=== PATIENT | female | born 1985 | race American Indian/Alaskan Native ===

== ENCOUNTER 2016-08-31 20:45 | Inpatient (IN) | payer MEDICAID ==
[2016-08-31] MEDS ORDERED: CERVIDIL VG ONE (21:55)
--- NOTE | 2016-08-31 22:01 | History and Physical Report ---
History of Present Illness Date of examination: 08/31/16 Date of admission: 08/31/16 20:45 Chief complaint: Induction of labor History of present illness: 31 yo at 41 weeks by one US 08/23/16 stated that she was on induction book but was not scheduled yet while in triage she was scheduled for today. very limited care ( one visit) Past History Past Medical History: no pertinent history, hypertension, diabetes (gestational diabetes in one previous pregnancies) Past Surgical History: no surgical history Family/Genetic History: diabetes Social history: single. denies: smoking - Obstetrical History Expected Date of Delivery: 08/23/16 Actual Gestation: 41 Week(s) 1 Day(s) : 3 Para: 2 Hx # Term Pregnancies: 2 Number of Pregnancies: 0 Spontaneous Abortions: 0 Induced : 0 Number of Living Children: 2 Medications and Allergies Allergies Allergy/AdvReac Type Severity Reaction Status Date / Time No Known Allergies Allergy Verified 08/31/16 21:43 Home Medications Medication Instructions Recorded Confirmed Last Taken Type No Known Home Medications [No 08/31/16 08/31/16 Unknown History Reported Home Medications] Active Meds: Active Medications Dinoprostone (Cervidil) 10 mg VG ONCE ONE Stop: 08/31/16 21:56 Influenza Virus Vaccine Quadrival (Fluarix Quad 2983-3500(36 Mos+)) 60 mcg IM .ONCE ONE Stop: 09/01/16 12:01 Review of Systems All systems: negative Constitutional: no fever, no chills, no sweats, no fatigue Eyes: deferred Ears, nose, mouth and throat: deferred Cardiovascular: no chest pain, no orthopnea, no palpitations, no edema, no high blood pressure Respiratory: no shortness of breath, no wheezing, no pain Breasts: normal Gastrointestinal: no nausea, no vomiting, no diarrhea Genitourinary: normal appearance, no genital sores Rectal Exam: deferred Integumentary: no rash Neurological: no seizures, no headaches, no migraines Psychiatric: no depression - Vital Signs Vital signs: Vital Signs Temp Pulse Resp BP Pulse Ox 98.4 F 94 H 20 132/69 99 08/31/16 21:16 08/31/16 21:16 08/31/16 21:16 08/31/16 21:16 08/31/16 21:16 Temp Pulse Resp BP Pulse Ox 98.4 F 86 20 132/69 98 08/31/16 21:16 08/31/16 21:41 08/31/16 21:16 08/31/16 21:16 08/31/16 21:41 - Physical Exam Breasts: Positive: normal Cardiovascular: Regular rate Lungs: Positive: Clear to auscultation Abdomen: Positive: normal appearance, soft, normal bowel sounds. Negative: distention, tenderness Genitourinary (Female): Positive: normal external genitalia, normal perenium Vagina: Positive: normal moisture Uterus: Positive: normal contour Anus/Rectum: Positive: normal perianal skin Extremities: Positive: normal Deep Tendon Reflex Grade: Normal +2 - Obstetrical FHR: auscultation normal, category 1 Cervical Dilatation: 2 Cervical Effacement Percentage: 50 station: -3 Uterine Contraction Pattern: Absent Uterine Tone Measurement Phase: Resting Results All other labs normal. Assessment and Plan A/P HD#1 limited care post dates induction 08/23/16 1. GBS neg -no abx required 2. cervidil induction 3. vertex 4. limited care - understands limitation of the US at third trimester. Patient states that she has not had any care previously anywhere and no US pereviously. She understands error and risk of 37 weeks delivery with possible lungs not as mature ( hx of diabetes in one previous ) FS now 5. all labs sent as ther is no previous work up. She understands that there are labs not performed ie quad 6. All questions answered
[2016-08-31] MEDS ORDERED: ePHEDrine SULFATE IV PRN (22:21)
[2016-08-31] MEDS ORDERED: SUBLIMAZE IV PRN (22:21)
[2016-08-31] MEDS ORDERED: MINERAL OIL PO PRN (22:21)
[2016-08-31] MEDS ORDERED: BRETHINE SUB-Q PRN (22:21)
[2016-08-31] MEDS ORDERED: ZOFRAN IV PRN (22:21)
[2016-08-31] MEDS ORDERED: BRETHINE IVP PRN (22:21)
[2016-08-31 22:35] LABS: Basophils % (Auto) 0.3 % (0.0-1.8); Eosinophils % (Auto) 0.4 % (0.0-4.3); Hematocrit 29.3 % (30.3-42.9); Hemoglobin 9.2 gm/dl (10.1-14.3); Mean Corpuscular HGB Conc 32 % (30-34); Platelet Count 325 K/mm3 (140-440); Red Blood Count 4.21 M/mm3 (3.65-5.03); Red Cell Distribution Width 17.7 % (13.2-15.2); White Blood Count 7.4 K/mm3 (4.5-11.0)
[2016-08-31 22:38] LABS: Mean Corpuscular Hemoglobin 22 pg (28-32); Mean Corpuscular Volume 70 fl (79-97)
[2016-08-31] MEDS ORDERED: PITOCin/NS 20 UNIT/1000ML DRIP 1,000 ML IV SCH (23:00)
[2016-08-31] MEDS ORDERED: PITOCin/NS 30 UNIT/500ML 500 ML IV SCH ×2 (23:00)
[2016-09-01] MEDS: LACTATED RINGERS 1,000 ML IV SCH ×2 (00:30→10:30)
[2016-09-01] MEDS ORDERED: AMBIEN PO PRN (00:40)
[2016-09-01 01:45] LABS: Urine Drugs of Abuse Note Disclamer
[2016-09-01 02:25] LABS: Bilirubin,Urine NEG (Negative); Blood,Urine NEG (Negative); Ketones,Urine 80 mg/dL (Negative); Leukocyte Esterase,Urine NEG (Negative); Mucus,Urine 3+ /HPF; Nitrite,Urine NEG (Negative); Protein,Urine <15 mg/dL mg/dL (Negative); Urobilinogen,Urine < 2.0 mg/dL (<2.0)
[2016-09-01] MEDS: STADOL IV PRN ×2 (03:38→06:40)
--- NOTE | 2016-09-01 09:35 | Progress Note ---
Assessment and Plan O: /-2/vtx/ AROM-clear Cervidil removed A: IUP at term Active Labor Pain P: Anesthesia/Anesthesia prn Subjective - Subjective Date of service: 09/01/16 Patient reports: new complaints (Pain), loss of fluid, movement normal, contractions, no vaginal bleeding Objective - Vital Signs Vital Signs: Vital Signs - 12hr 08/31/16 08/31/16 08/31/16 21:36 21:41 22:56 Temperature Pulse Rate 90 86 97 H Pulse Rate [ From Monitor] Respiratory Rate Blood Pressure 121/71 Blood Pressure [Right Arm] O2 Sat by Pulse 98 98 Oximetry 08/31/16 09/01/16 09/01/16 23:00 03:39 03:44 Temperature 97.9 F 98.1 F Pulse Rate 100 H 92 H Pulse Rate [ From Monitor] Respiratory 18 18 Rate Blood Pressure Blood Pressure [Right Arm] O2 Sat by Pulse 97 96 Oximetry 09/01/16 09/01/16 09/01/16 03:49 03:54 03:59 Temperature Pulse Rate 99 H 104 H 97 H Pulse Rate [ From Monitor] Respiratory Rate Blood Pressure Blood Pressure [Right Arm] O2 Sat by Pulse 97 97 97 Oximetry 09/01/16 09/01/16 09/01/16 04:04 04:09 04:14 Temperature Pulse Rate 105 H 109 H 98 H Pulse Rate [ From Monitor] Respiratory Rate Blood Pressure Blood Pressure [Right Arm] O2 Sat by Pulse 97 97 97 Oximetry 09/01/16 09/01/16 09/01/16 04:19 04:24 04:29 Temperature Pulse Rate 100 H 106 H 100 H Pulse Rate [ From Monitor] Respiratory Rate Blood Pressure Blood Pressure [Right Arm] O2 Sat by Pulse 98 97 97 Oximetry 09/01/16 09/01/16 09/01/16 04:36 04:41 04:46 Temperature Pulse Rate 114 H 97 H 93 H Pulse Rate [ From Monitor] Respiratory Rate Blood Pressure Blood Pressure [Right Arm] O2 Sat by Pulse 98 97 97 Oximetry 09/01/16 09/01/16 09/01/16 04:51 04:56 05:01 Temperature Pulse Rate 58 L 92 H 95 H Pulse Rate [ From Monitor] Respiratory Rate Blood Pressure Blood Pressure [Right Arm] O2 Sat by Pulse 87 99 98 Oximetry 0109/01/16 09/01/16 05:06 05:11 05:16 Temperature Pulse Rate 90 97 H 94 H Pulse Rate [ From Monitor] Respiratory Rate Blood Pressure Blood Pressure [Right Arm] O2 Sat by Pulse 99 99 99 Oximetry 09/01/16 09/01/16 09/01/16 05:21 05:26 05:31 Temperature Pulse Rate 101 H 94 H 97 H Pulse Rate [ From Monitor] Respiratory Rate Blood Pressure Blood Pressure [Right Arm] O2 Sat by Pulse 96 99 97 Oximetry 09/01/16 09/01/16 09/01/16 05:36 05:38 05:41 Temperature Pulse Rate 96 H 91 H 90 Pulse Rate [ From Monitor] Respiratory Rate Blood Pressure Blood Pressure [Right Arm] O2 Sat by Pulse 96 78 L 98 Oximetry 09/01/16 09/01/16 09/01/16 05:46 05:51 05:56 Temperature Pulse Rate 95 H 90 97 H Pulse Rate [ From Monitor] Respiratory Rate Blood Pressure Blood Pressure [Right Arm] O2 Sat by Pulse 99 98 99 Oximetry 09/01/16 09/01/16 09/01/16 06:01 06:06 06:10 Temperature Pulse Rate 95 H 97 H 105 H Pulse Rate [ From Monitor] Respiratory Rate Blood Pressure Blood Pressure [Right Arm] O2 Sat by Pulse 98 96 83 L Oximetry 09/01/16 09/01/16 09/01/16 06:11 06:23 06:25 Temperature Pulse Rate 99 H 103 H 96 H Pulse Rate [ From Monitor] Respiratory Rate Blood Pressure Blood Pressure [Right Arm] O2 Sat by Pulse 92 88 87 Oximetry 09/01/16 09/01/16 09/01/16 06:28 08:05 08:08 Temperature 97.4 F L Pulse Rate 99 H 109 H Pulse Rate [ 109 H From Monitor] Respiratory 18 Rate Blood Pressure 139/80 Blood Pressure 139/80 [Right Arm] O2 Sat by Pulse 99 Oximetry - Exam Breasts: deferred Abdomen: Present: normal appearance, soft Uterus: Present: normal, firm FHR: category 1 Uterine Contraction Monitor Mode: External Cervical Dilatation: 3.5 Cervical Effacement Percentage: 80 station: -2 Uterine Contraction Frequency (min): 1-2 Uterine Contraction Pattern: Regular Uterine Tone Measurement Phase: Resting Uterine Contraction Intensity: Moderate - Labs Labs: Abnormal Labs 08/31/16 22:00 Hgb 9.2 L Hct 29.3 L MCV 70 L MCH 22 L RDW 17.7 H [place] % (Auto) 8.0 H Laboratory Results - last 24 hr 08/31/16 08/31/16 08/31/16 22:00 22:00 22:00 WBC 7.4 RBC 4.21 Hgb 9.2 L Hct 29.3 L MCV 70 L MCH 22 L MCHC 32 RDW 17.7 H Plt Count 325 Lymph % (Auto) 28.0 [place] % (Auto) 8.0 H Eos % (Auto) 0.4 Baso % (Auto) 0.3 Lymph # 2.1 [place] # 0.6 Eos # 0.0 Baso # 0.0 Seg Neutrophils % 63.3 Seg Neutrophils # 4.7 Sickle Cell Screen Negative POC Glucose Urine Color Urine Turbidity Urine pH Ur Specific [place] Urine Protein Urine Glucose (UA) Urine Ketones Urine Blood Urine Nitrite Urine Bilirubin Urine Urobilinogen Ur Leukocyte Esterase Urine WBC (Auto) Urine RBC (Auto) U Epithel Cells (Auto) Urine Mucus Urine Opiates Screen Urine Methadone Screen Ur Barbiturates Screen Ur Phencyclidine Scrn Ur Amphetamines Screen U Benzodiazepines Scrn Urine Cocaine Screen U Marijuana (THC) Screen Drugs of Abuse Note Hep Bs Antigen Non-reactive Hepatitis C Antibody Non-reactive Rubella IgG Antibody Immune Blood Type Antibody Screen 08/31/16 08/31/16 09/01/16 22:10 22:41 01:25 WBC RBC Hgb Hct MCV MCH MCHC RDW Plt Count Lymph % (Auto) [place] % (Auto) Eos % (Auto) Baso % (Auto) Lymph # [place] # Eos # Baso # Seg Neutrophils % Seg Neutrophils # Sickle Cell Screen POC Glucose 89 Urine Color Urine Turbidity Urine pH Ur Specific [place] Urine Protein Urine Glucose (UA) Urine Ketones Urine Blood Urine Nitrite Urine Bilirubin Urine Urobilinogen Ur Leukocyte Esterase Urine WBC (Auto) Urine RBC (Auto) U Epithel Cells (Auto) Urine Mucus Urine Opiates Screen Presumptive negative Urine Methadone Screen Presumptive negative Ur Barbiturates Screen Presumptive negative Ur Phencyclidine Scrn Presumptive negative Ur Amphetamines Screen Presumptive negative U Benzodiazepines Scrn Presumptive negative Urine Cocaine Screen Presumptive negative U Marijuana (THC) Screen Presumptive negative Drugs of Abuse Note Disclamer Hep Bs Antigen Hepatitis C Antibody Rubella IgG Antibody Blood Type B POSITIVE Antibody Screen Negative 01/03/17 01:25 WBC RBC Hgb Hct MCV MCH MCHC RDW Plt Count Lymph % (Auto) [place] % (Auto) Eos % (Auto) Baso % (Auto) Lymph # [place] # Eos # Baso # Seg Neutrophils % Seg Neutrophils # Sickle Cell Screen POC Glucose Urine Color Yellow Urine Turbidity Clear Urine pH 5.0 Ur Specific [place] 1.015 Urine Protein <15 mg/dl Urine Glucose (UA) Neg Urine Ketones 80 Urine Blood Neg Urine Nitrite Neg Urine Bilirubin Neg Urine Urobilinogen < 2.0 Ur Leukocyte Esterase Neg Urine WBC (Auto) 4.0 Urine RBC (Auto) 1.0 U Epithel Cells (Auto) 1.0 Urine Mucus 3+ Urine Opiates Screen Urine Methadone Screen Ur Barbiturates Screen Ur Phencyclidine Scrn Ur Amphetamines Screen U Benzodiazepines Scrn Urine Cocaine Screen U Marijuana (THC) Screen Drugs of Abuse Note Hep Bs Antigen Hepatitis C Antibody Rubella IgG Antibody Blood Type Antibody Screen
[2016-09-01] MEDS ORDERED: PITOCin/NS 30 UNIT/500ML 500 ML IV SCH (10:00)
[2016-09-01] MEDS ORDERED: ePHEDrine SULFATE ONE (10:59)
[2016-09-01] MEDS ORDERED: NARCAN 2 MG/2 ML IV PRN (11:19)
[2016-09-01] MEDS ORDERED: ePHEDrine SULFATE IV PRN (11:19)
--- NOTE | 2016-09-01 11:19 | Anesthesia Consultation ---
Anesthesia Consult and Med Hx Date of service: 09/01/16 - Airway Anesthetic Teeth Evaluation: Good ROM Head & Neck: Adequate Mental/Hyoid Distance: Adequate Mallampati Class: Class II Intubation Access Assessment: Probably Good - Pre-Operative Health Status ASA Pre-Surgery Classification: ASA2 Proposed Anesthetic Plan: Epidural, Spinal - Pulmonary Hx Asthma: No COPD: No Hx Pneumonia: No - Cardiovascular System Hx Hypertension: No (gest HTN with 1st ) - Central Nervous System Hx Seizures: No Hx Psychiatric Problems: No - Endocrine Hx Renal Disease: No Hx End Stage Renal Disease: No Hx Hypothyroidism: No Hx Hyperthyroidism: No - Hematic Hx Anemia: Yes (1st ) Hx Sickle Cell Disease: No - Other Systems Hx Alcohol Use: No Hx Obesity: Yes (Morbid obesity BMI 40.0)
[2016-09-01] MEDS ORDERED: FLUARIX QUAD 2016-2017(36 MOS+) IM ONE (12:00)
[2016-09-01] MEDS ORDERED: fentaNYL-BUPIV 2 MCG/ML-0.125% 100 ML EPIDURAL SCH (12:00)
--- NOTE | 2016-09-01 12:09 | Procedure Note ---
OB Delivery Note - Delivery Date of Delivery: 09/01/16 (8-0oz female @ ) Surgeon: DANDRE ORTIZ Estimated blood loss: <100cc - Vaginal Delivery presentation: vertex Delivery position: OA Intrapartum events: no care Delivery induction: cervidil Delivery augmentation: rupture of membranes Delivery monitor: external FHT, external uterine Route of delivery: Delivery placenta: spontaneous Delivery cord: nuchal cord (reduced by RN) Episiotomy: none Delivery laceration: none Anesthesia: epidural - Infant A at 1 minute: 8 at 5 minutes: 9 Gender: Female (Report from RN C/C/-1, recently received epidural, dense block with no maternal urge to push. order given for passive descent. Received call head delivering. RN viable female. Skin to skin. Spont placenta, bleeding scant. IV dislodged. Pitocin 10mg IM given. FF 2 below U, ML. Mother and stable and bonding.)
[2016-09-01] MEDS ORDERED: NORCO 5/325 PO PRN (12:10)
[2016-09-01] MEDS ORDERED: DULCOLAX PR PRN (12:10)
[2016-09-01] MEDS ORDERED: LANSINOH TP PRN (12:10)
[2016-09-01] MEDS ORDERED: ZOFRAN IV PRN (12:10)
[2016-09-01] MEDS ORDERED: TUCKS PAD TP PRN (12:10)
[2016-09-01] MEDS ORDERED: MILK OF MAGNESIA PO PRN (12:10)
[2016-09-01] MEDS ORDERED: DERMOPLAST TP PRN (12:10)
[2016-09-01] MEDS ORDERED: TYLENOL PO PRN (12:10)
[2016-09-01] MEDS ORDERED: PHENERGAN PO PRN (12:10)
[2016-09-01] MEDS ORDERED: PHENERGAN PR PRN (12:10)
[2016-09-01] MEDS ORDERED: BENADRYL PO PRN (12:10)
[2016-09-01] MEDS ORDERED: SODIUM CHLORIDE FLUSH SYRINGE 10 ML IV NR (13:00)
[2016-09-01] MEDS: MOTRIN PO SCH (14:11)
[2016-09-02] MEDS: MOTRIN PO SCH ×3 (00:33→19:25)
[2016-09-02 01:11] LABS: Hematocrit 31.2 % (30.3-42.9); Hemoglobin 9.6 gm/dl (10.1-14.3)
[2016-09-02] MEDS ORDERED: M-M-R II VACCINE SUB-Q ONE (06:00)
[2016-09-02] MEDS ORDERED: BOOSTRIX IM ONE (06:00)
--- NOTE | 2016-09-02 08:03 | Progress Note ---
Assessment and Plan O: VSS AF PP H/H: 9.6/31.1 A: Stable PP Day 1 P: D/C home Routine orders Subjective - Subjective Date of service: 09/02/16 Patient reports: appetite normal, voiding normally, pain well controlled, ambulating normally : doing well, nursing well, bottle feeding Objective - Vital Signs Latest vital signs: Vital Signs Temp Pulse Pulse Pulse Resp BP BP 09/02/16 04:27 98.1 F 80 18 126/63 09/01/16 20:51 98.7 F 93 H 20 123/69 09/01/16 15:35 98.4 F 81 16 123/71 09/01/16 13:45 97.8 F 100 H 18 142/80 09/01/16 13:10 89 107/52 09/01/16 12:55 82 122/59 09/01/16 12:40 91 H 133/59 09/01/16 12:24 83 138/59 09/01/16 12:12 82 108/52 09/01/16 11:54 83 130/62 09/01/16 11:52 85 129/77 09/01/16 11:50 85 117/55 09/01/16 11:47 100 H 140/65 09/01/16 11:44 94 H 158/64 09/01/16 11:42 110 H 153/69 09/01/16 11:41 114 H 09/01/16 11:40 103 H 146/65 09/01/16 11:38 106 H 148/90 09/01/16 11:37 98 H 09/01/16 11:36 109 H 142/85 09/01/16 11:34 100 H 153/67 09/01/16 11:32 102 H 09/01/16 11:30 112 H 153/71 09/01/16 11:28 96 H 140/75 09/01/16 11:27 104 H 09/01/16 11:26 91 H 130/71 09/01/16 11:24 88 131/73 09/01/16 11:22 86 133/78 09/01/16 11:20 88 120/58 09/01/16 11:18 89 134/63 09/01/16 11:17 82 09/01/16 11:16 85 134/65 09/01/16 11:14 82 136/65 09/01/16 11:12 90 132/63 09/01/16 11:10 89 131/63 09/01/16 11:08 87 134/62 09/01/16 11:07 90 09/01/16 11:06 84 133/83 09/01/16 11:04 78 109/57 09/01/16 11:02 89 09/01/16 11:01 83 105/58 09/01/16 11:00 88 110/58 09/01/16 10:58 86 129/66 09/01/16 10:57 91 H 09/01/16 10:56 93 H 126/68 09/01/16 10:54 102 H 142/86 09/01/16 10:53 63 09/01/16 10:52 103 H 134/79 09/01/16 10:51 110 H 09/01/16 10:50 96 H 136/78 09/01/16 10:48 106 H 133/75 09/01/16 10:46 105 H 130/74 09/01/16 08:08 97.4 F L 109 H 18 139/80 09/01/16 08:05 109 H 139/80 Pulse Ox 09/02/16 04:27 09/01/16 20:51 09/01/16 15:35 09/01/16 13:45 09/01/16 13:10 09/01/16 12:55 09/01/16 12:40 09/01/16 12:24 09/01/16 12:12 09/01/16 11:54 09/01/16 11:52 09/01/16 11:50 09/01/16 11:47 09/01/16 11:44 09/01/16 11:42 99 09/01/16 11:41 81 L 09/01/16 11:40 09/01/16 11:38 09/01/16 11:37 98 09/01/16 11:36 09/01/16 11:34 09/01/16 11:32 98 09/01/16 11:30 09/01/16 11:28 09/01/16 11:27 99 09/01/16 11:26 09/01/16 11:24 09/01/16 11:22 100 09/01/16 11:20 09/01/16 11:18 09/01/16 11:17 100 09/01/16 11:16 09/01/16 11:14 09/01/16 11:12 100 09/01/16 11:10 09/01/16 11:08 09/01/16 11:07 100 09/01/16 11:06 09/01/16 11:04 09/01/16 11:02 100 09/01/16 11:01 09/01/16 11:00 09/01/16 10:58 09/01/16 10:57 98 09/01/16 10:56 09/01/16 10:54 09/01/16 10:53 74 L 09/01/16 10:52 09/01/16 10:51 98 09/01/16 10:50 09/01/16 10:48 09/01/16 10:46 99 09/01/16 08:08 09/01/16 08:05 Intake and Output 09/01/16 09/02/16 09/02/16 22:59 06:59 14:59 Intake Total 480 480 Output Total 900 380 Balance -420 100 Intake: Oral 480 480 Output: Urine 900 380 Void 900 380 Other: Total, Intake Amount 480 480 Total, Output Amount 900 380 - Exam Breasts: Present: normal Lungs: Present: Normal air movement Abdomen: Present: normal appearance, soft. Absent: distention, tenderness Vulva: both: normal Uterus: Present: normal, firm, fundal height below umbilicus. Absent: bogginess , tenderness Extremities: Present: normal - Labs Labs: Abnormal lab results 09/02/16 Range/Units 00:50 Hgb 9.6 L (10.1-14.3) gm/dl
--- NOTE | 2016-09-02 08:21 | Discharge Summary ---
Providers - Providers Date of Admission: 08/31/16 20:45 Date of discharge: 09/02/16 Attending physician: CHELO ANGLIN MD Primary care physician: CHELO ANGLIN MD Hospitalization Reason for admission: induction of labor, IUP at term Delivery: Episiotomy: none Laceration: none Other procedures: none complications: none Discharge diagnosis: IUP at term delivered baby: female Condition at discharge: Good Disposition: DISCHARGED TO HOME OR SELFCARE Plan - Discharge Medications Prescriptions: Docusate Sodium [Colace] 100 mg PO BID PRN #60 capsule PRN Reason: constipation Ferrous Sulfate [Feosol 325 MG tab] 325 mg PO BID #120 tablet Ibuprofen [Motrin 600 MG tab] 600 mg PO Q6H PRN #40 tablet PRN Reason: Pain - Provider Discharge Summary Activity: routine, no sex for 6 weeks, no heavy lifting 4 weeks, no strenuous exercise Diet: routine Instructions: routine Additional instructions: [] Smoking cessation referral if applicable(refer to patient education folder for contact #) [] Refer to [facility] Booklet Call your doctor immediately for: * Fever > 100.5 * Heavy vaginal bleeding ( >1 pad per hour) * Severe persistent headache * Shortness of breath * Reddened, hot, painful area to leg or breast * Drainage or odor from incision. * Keep incision clean and dry at all times and follow doctor's instructions regarding bathing/showering - Follow up plan Follow up: CHELO ANGLIN MD [Primary Care Provider] - DANDRE ORTIZ CNM [Advanced Practice Nurse] - (RTO 4 weeks postaprtum,prn)
--- NOTE | 2016-09-02 08:41 | Progress Note ---
Subjective Date of service: 09/02/16 Interval history: 1st day after normal spontaneous vaginal delivery Patient is in the bed, comfortably resting. Epidural catheter has been removed earlier. Ambulated well. No residual neurological deficit. No anesthesia complications Objective - Constitutional Vitals: Vital Signs - 12hr 09/01/16 09/02/16 20:51 04:27 Temperature 98.7 F 98.1 F Pulse Rate [ 93 H 80 Right Radial] Respiratory 20 18 Rate Blood Pressure 123/69 126/63 [Right Arm] - Labs CBC & Chem 7: 09/02/16 00:50 Labs: Abnormal lab results 09/02/16 Range/Units 00:50 Hgb 9.6 L (10.1-14.3) gm/dl
[2016-09-02] MEDS: PRENATAL VITAMIN PO SCH (09:56)
[2016-09-03] MEDS: MOTRIN PO SCH ×3 (01:10→18:09)
[2016-09-03 09:40] LABS: HIVR-1/2 Ab Reactive (Non React)
[2016-09-03 09:41] LABS: HIV-1 Antigen p24 Non React (Non React)
[2016-09-03] MEDS: PRENATAL VITAMIN PO SCH (11:14)
[2016-09-03] MEDS ORDERED: FLUARIX QUAD 2016-2017(36 MOS+) IM ONE (12:00)
[2016-09-03 12:05] LABS: HIV-1 Antigen p24 Non React (Non React); HIVR-1/2 Ab Reactive (Non React)
--- NOTE | 2016-09-03 15:46 | Consultation ---
History of Present Illness - Reason for Consult Consult date: 09/03/16 HIV - History of Present Illness This is a 31 year old woman with a history of hypertension who presented to [facility] 41 weeks gestation. She did not have care. She had spontaneous delivery of a healthy baby girl. She had an HIV antibody test that came back positive. Infectious disease consult was called to evaluate. Patient had a P24 antigen to be negative. Patient said in January of 2016 she went to a [facility] sponsored HIV testing program in [place], she was found to be negative at that time. She was not forthcoming with information. She told me the baby's father is out of state and she does not know his HIV status. She does not admit to risk factors for HIV, she said she usually uses barrier protection, has never worked as prostitute, no IV drugs. Past History Past Medical History: hypertension Social history: single. denies: smoking Medications and Allergies Allergies Allergy/AdvReac Type Severity Reaction Status Date / Time No Known Allergies Allergy Verified 08/31/16 21:43 Home Medications Medication Instructions Recorded Confirmed Last Taken Type Docusate Sodium [Colace] 100 mg PO BID PRN #60 capsule 09/02/16 Unknown Rx Ferrous Sulfate [Feosol 325 MG tab] 325 mg PO BID #120 tablet 09/02/16 Unknown Rx Ibuprofen [Motrin 600 MG tab] 600 mg PO Q6H PRN #40 tablet 09/02/16 Unknown Rx Active Meds: Active Medications Acetaminophen (Tylenol) 650 mg PO Q4H PRN PRN Reason: Pain MILD(1-3)/Fever >100.5/LOONEY Acetaminophen/Hydrocodone Bitart ([place] 5/325) 2 each PO Q4H PRN PRN Reason: Pain, Moderate (4-6) Last Admin: 09/02/16 10:13 Dose: 2 each Benzocaine/Menthol (Dermoplast) 1 spray TP PRN PRN PRN Reason: Episiotomy Pain Bisacodyl (Dulcolax) 10 mg AR BID PRN PRN Reason: Constipation Diphenhydramine HCl (Benadryl) 25 mg PO Q6H PRN PRN Reason: Itching Ibuprofen (Motrin) 600 mg PO Q6H ANNIKA Last Admin: 09/03/16 13:21 Dose: 600 mg Magnesium Hydroxide (Milk Of Magnesia) 30 ml PO HS PRN PRN Reason: Constipation Multi-Ingredient Ointment (Lansinoh) 1 applic TP PRN PRN PRN Reason: Sore Nipples Multivitamins/Iron/Calcium ( Vitamin) 1 each PO QDAY ANNIKA Last Admin: 09/03/16 11:14 Dose: 1 each Ondansetron HCl (Zofran) 4 mg IV Q8H PRN PRN Reason: Nausea And Vomiting Promethazine HCl (Phenergan) 25 mg PO Q6H PRN PRN Reason: Nausea And Vomiting Promethazine HCl (Phenergan) 25 mg AR Q6H PRN PRN Reason: Nausea And Vomiting Witch Jacqui/Glycerin (Tucks Pad) 1 each TP PRN PRN PRN Reason: Hemorrhoid/cleansing/soothing Review of Systems Constitutional: no weight loss, no fever, no chills, no sweats, no anorexia, no fatigue, no weakness Ears, nose, mouth and throat: no ear pain, no ear discharge, no tinnitis, no decreased hearing, no bleeding gums, no dental pain, no mouth pain, no dysphagia Breasts: no normal, no change in shape, no pain, no skin changes Cardiovascular: no chest pain, no orthopnea, no palpitations, no shortness of breath, no dyspnea on exertion Respiratory: no hemoptysis, no shortness of breath, no congestion, no wheezing, no pleurisy Gastrointestinal: no nausea, no vomiting, no diarrhea, no melena, no hematochezia, no loss of appetite Genitourinary Female: no pelvic pain, no flank pain, no dysuria, no urge incontinence Rectal: no pain, no incontinence, no bleeding, no itching, no hemorrhoids Musculoskeletal: no neck stiffness, no shooting arm pain, no morning stiffness, no muscle weakness, no myalgias Integumentary: no pruritis, no redness, no sores, no bullae, no lesions, no darkening of skin Neurological: no weakness, no parathesias, no numbness, no tingling, no migraines, no convulsions, no aphasia Psychiatric: no sleep disturbances, no hypersomnia, no hallucinations, no depression Endocrine: no polyphagia, no polydipsia, no weight change, no proptosis Physical Examination - Constitutional Vitals: Selected Entries 09/02/16 09/03/16 09/03/16 16:08 01:35 09:30 Temperature 98.0 F 98 F 98.4 F Pulse Rate [ 90 Right Radial] Respiratory Rate Blood Pressure 140/70 [Right Arm] Blood Pressure 93 Mean [Right Arm ] 09/03/16 13:21 Temperature Pulse Rate [ Right Radial] Respiratory 18 Rate Blood Pressure [Right Arm] Blood Pressure Mean [Right Arm ] General appearance: Present: no acute distress, well-nourished, obese - EENT Eyes: Present: PERRL, EOM intact. Absent: scleral icterus, conjunctival injection ENT: hearing intact, clear oral mucosa, dentition normal, no oropharyngeal erythema, no poor dentition - Neck Neck: Present: supple, normal ROM. Absent: enlarged thyroid, masses or JVD - Respiratory Respiratory effort: normal - Cardiovascular Rhythm: regular Heart Sounds: Present: S1 & S2 - Extremities Extremities: no ischemia, pulses intact, No edema - Abdominal General gastrointestinal: Present: soft, tender, normal bowel sounds Female genitourinary: Present: deferred - Rectal Rectal Exam: deferred - Integumentary Integumentary: Present: clear, warm, dry. Absent: erythema, jaundice, rash - Musculoskeletal Musculoskeletal: strength equal bilaterally - Psychiatric Psychiatric: depressed Results - Labs CBC & Chem 7: 09/02/16 00:50 Labs: Laboratory Tests 08/31/16 08/31/16 08/31/16 22:00 22:00 22:00 WBC 7.4 Hgb Urine WBC (Auto) Urine RBC (Auto) Ur Amphetamines Screen U Benzodiazepines Scrn Urine Cocaine Screen U Marijuana (THC) Screen RPR Hep Bs Antigen Non-reactive Hepatitis C Antibody Non-reactive HIV 1&2 Antibody Rapid HIV P24 Antigen Rubella IgG Antibody Immune 08/31/16 08/31/16 09/01/16 22:00 22:20 01:25 WBC Hgb Urine WBC (Auto) Urine RBC (Auto) Ur Amphetamines Screen Presumptive negative U Benzodiazepines Scrn Presumptive negative Urine Cocaine Screen Presumptive negative U Marijuana (THC) Screen Presumptive negative RPR Nonreactive Hep Bs Antigen Hepatitis C Antibody HIV 1&2 Antibody Rapid Reactive HIV P24 Antigen Non react Rubella IgG Antibody 09/01/16 09/02/16 09/03/16 01:25 00:50 10:10 WBC Hgb 9.6 L Urine WBC (Auto) 4.0 Urine RBC (Auto) 1.0 Ur Amphetamines Screen U Benzodiazepines Scrn Urine Cocaine Screen U Marijuana (THC) Screen RPR Hep Bs Antigen Hepatitis C Antibody HIV 1&2 Antibody Rapid Reactive HIV P24 Antigen Non react Rubella IgG Antibody Assessment and Plan Antibiotics: none This is a 31 year old woman who presented at 41 weeks gestation without adequate care. She delivered healthy baby girl on 09/01/16 and found to have a positive hiv antibody test with a negative p24. Patient was not forthcoming with information regarding her exposure risk factors. She said she had a negative hiv test in [facility] of [facility] at [facility]. 1) HIV antibody positive in a patient who gave on 09/01/16. P24 antigen negative but this is usually positive early in disease and become negative later in disease. False positive antibody test can be seen in . However will work up for active infection with viral load, in addition will do work up just in case it is a true positive. 2) poor psychosocial support, patient has two previous children that are in the state's possession. Plan: 1) obtain HIV viral load (hiv quantitative RNA PCR 2) HIV CD4 (lymphocyte subset) 3) HIV genotype 4) toxoplasma antibody 5) G6PD and HLA 5701 6)patient was given the ID office card, she will call to make an appointment, no objection to discharge 7) she gave me her number: [phone], will contact her once results are coming back 8) will be able to make further decisions once lab results are back 9) the importance of barrier protection was discussed with patient
[2016-09-03 17:25] VITALS: BP 126/82
--- NOTE | 2016-09-03 20:56 | Event Note ---
Date: 09/03/16 Patient is a lady that had very limited care that came to the [facility] one time. Over the holiday she showed up for complaints of contractions. She stated that she had been seen by one of the providers and had been arranged to be induced secondary to post dates. Patient admitted to having no care secondary to " I had other things to do and focus on" "difficult to recieve care very late in my " "no doctor would accept me this late in my " " I was not focused on this ". After reviewing the one and only US performed at [facility] that gave a due date of 08/23/16, reported by the patient and clarification she did not remember her last menstrual period. Cher was then scheduled from triage to return on Wednesday as Wednesday ( previously reported by the patient) as the date assigned for a scheduled c/s. Patient was noted to be 3/50/-2 by the nurses and celina. Once the patient arrived I counseled the patient concerning risk of induction/ augmentation for 35mins. Patient verbalized understanding that her care was limited and poor outcomes could occur. We proceeded with an induction and the baby was delivered rapidly spontaneous vaginal delivery. During the course of admission labs were received and noted to be HIV positive. She was informed of her status and Peds was contacted immediately and antiretroviral meds was initiated promptly. the HIV lab was then sent out for confirmation and would not be reported for several days. An Infectious Disease consult was obtained ( appreciate and see report). The patient was provided counseling and will f/u with [facility] early next week to follow up on her status and confirmation. She will was also counseled concerning her non compliance and need for compliance in this sensitive and crucial condition.
== END 2016-09-03 22:30 | disposition home or self-care (01) | DRG 775 ==
LOC: LD 20:45 → OB 09-01 13:55
PROVIDERS: ADMIT Obstetrics & Gynecology; ATTEND Obstetrics & Gynecology
PROC: 10E0XZZ Delivery of Products of Conception, External Approach (ICD-10-PCS; principal; 2016-09-01)
PROC: 3E0S3CZ (ICD-10-PCS; 2016-09-01)
PROC: 00HU33Z Insertion of Infusion Device into Spinal Canal, Percutaneous Approach (ICD-10-PCS; 2016-09-01)
PROC: 3E0P7GC Introduction of Other Therapeutic Substance into Female Reproductive, Via Natural or Artificial Opening (ICD-10-PCS; 2016-09-01)
DX: O99.214 Obesity complicating childbirth (principal); O48.0 Post-term pregnancy; E66.01 Morbid (severe) obesity due to excess calories; O69.81X0 Labor and delivery complicated by cord around neck, without compression, not applicable or unspecified; Z3A.41 41 weeks gestation of pregnancy; Z37.0 Single live birth; Z68.41 Body mass index [BMI] 40.0-44.9, adult; O09.33 Supervision of pregnancy with insufficient antenatal care, third trimester
CPT/HCPCS: 36415; 80307; 81001; 81381; 82024; 82962; 85014; 85018; 85025; 85660; 86592; 86689; 86706; 86762; 86777; 86803; 86850; 86900; 86901; 87086; 87536; 87806; 87901; 90471; 90686; 90715; 99211; G0008; G0463; J0595; J2405; J2590; J3010; J7120

== ENCOUNTER 2017-04-01 04:35 | Inpatient (IN) | payer MEDICAID ==
[2017-04-01 05:17] LABS: Basophils % (Auto) 0.3 % (0.0-1.8); Eosinophils % (Auto) 0.6 % (0.0-4.3); Hematocrit 31.2 % (30.3-42.9); Hemoglobin 10.2 gm/dl (10.1-14.3); Mean Corpuscular HGB Conc 33 % (30-34); Mean Corpuscular Volume 78 fl (79-97); Platelet Count 243 K/mm3 (140-440); White Blood Count 8.1 K/mm3 (4.5-11.0)
[2017-04-01 05:21] LABS: Mean Corpuscular Hemoglobin 25 pg (28-32); Red Cell Distribution Width 20.6 % (13.2-15.2)
[2017-04-01 05:40] LABS: Alanine Aminotransferase 6 units/L (7-56); Albumin 3.2 g/dL (3.9-5); Albumin/Globulin Ratio 0.8 %; Alkaline Phosphatase 97 units/L (35-129); Anion Gap 18 mmol/L; BUN/Creatinine Ratio 11.66; Blood Urea Nitrogen 7 mg/dL (7-17); Calcium 8.8 mg/dL (8.4-10.2); Carbon Dioxide 19 mmol/L (22-30); Chloride 101.6 mmol/L (98-107); Glucose 110 mg/dL (65-100); Lipase 35 units/L (13-60); Potassium 3.5 mmol/L (3.6-5.0); Sodium 135 mmol/L (137-145); Total Protein 7.4 g/dL (6.3-8.2)
--- NOTE | 2017-04-01 07:51 | Ultrasound Report ---
OB ULTRASOUND Technique: Transabdominal ultrasound with Doppler interrogation. Gestation: Single Position: Breech. The fetus appears to be within the lower uterine segment and cervical canal. The feet may be presenting in the vaginal canal. Amniotic Fluid: Decreased RICHI = 0 cm Placenta: Intrauterine Placental Grade: 1 Heart Rate: 157 BPM BPD: 6.0 cm = 24 w 3 d HC: 24.5 cm = 24 w 3 d AC: 18.4 cm = 23 w 1 d FL: 4.0 cm = 23 w 0 d HC/AC Ratio: 1.22 Cephalic Index: 81.9 Estimated Weight: 582 grams LMP: 12/09/16 Clinical age = 16 w 1 d EDC: 09/15/17 US Gest. Age = 23 w 5 d EDC: 07/24/17 Comment: There is a large unilocular cyst in the right adnexa measuring 15.1 x 7.8 x 14.1 cm. This presumably represents a large ovarian or paraovarian cyst.
[2017-04-01] MEDS ORDERED: NACL 0.9% 1000 ML 1,000 ML ONE (08:04)
[2017-04-01] MEDS ORDERED: NACL 0.9% 1000 ML 1,000 ML IV ONE (08:12)
--- NOTE | 2017-04-01 08:44 | Emergency Department Report ---
ED Female HPI - General Chief complaint: Abdominal Pain Stated complaint: ABD PAIN Time Seen by Provider: 04/01/17 08:18 Source: patient, EMS Mode of arrival: Ambulatory Limitations: No Limitations - History of Present Illness Initial comments: 31 year old female with past medical history of HIV, gestational diabetes, and gestational hypertension presents to the hospital with abdominal pain and . Patient has not had any care. She developed severe suprapubic cramping rated 10/10 in intensity prior to arrival. Patient had lab work and ultrasound prior to my evaluation. After ultrasound patient had vaginal bleeding and passed a fetus. Ultrasound gestational age 23 weeks and 5 days. Patient complains of minimal bleeding and no pain at this time. This is her fourth , she has 3 children, and no previous miscarriages prior to today's episode. - Related Data Previous Rx's Medication Instructions Recorded Last Taken Type Docusate Sodium [Colace] 100 mg PO BID PRN #60 capsule 09/02/16 Unknown Rx Ferrous Sulfate [Feosol 325 MG tab] 325 mg PO BID #120 tablet 09/02/16 Unknown Rx Ibuprofen [Motrin 600 MG tab] 600 mg PO Q6H PRN #40 tablet 09/02/16 Unknown Rx Allergies Allergy/AdvReac Type Severity Reaction Status Date / Time No Known Allergies Allergy Verified 08/31/16 21:43 ED Review of Systems ROS: Stated complaint: ABD PAIN Other details as noted in HPI Comment: All other systems reviewed and negative Other: Constitutional: No fevers chills Eyes: No eye pain visual changes ENT: No ear pain or throat pain Neck: Denies pain Respiratory: Denies cough wheezing shortness of breath Cardiovascular: Denies chest pain, palpitations, syncope GI: As per HPI : As per HPI Musculoskeletal: Denies back pain Skin: Denies rash, lesions, erythema Neurologic: Denies headache, numbness, weakness Psychiatric: Denies suicidal ideation, hallucinations ED Past Medical Hx - Past Medical History Previous Medical History?: Yes Hx Hypertension: No (gest HTN with 1st ) Hx Congestive Heart Failure: No Hx Diabetes: No (gest diabetes with 1st ) Hx Deep Vein Thrombosis: No Hx Renal Disease: No Hx Sickle Cell Disease: No Hx Seizures: No Hx Asthma: No Hx COPD: No Hx HIV: No - Surgical History Past Surgical History?: No - Social History Smoking Status: Never Smoker Substance Use Type: None - Medications Home Medications: Home Medications Medication Instructions Recorded Confirmed Last Taken Type Docusate Sodium [Colace] 100 mg PO BID PRN #60 capsule 09/02/16 Unknown Rx Ferrous Sulfate [Feosol 325 MG tab] 325 mg PO BID #120 tablet 09/02/16 Unknown Rx Ibuprofen [Motrin 600 MG tab] 600 mg PO Q6H PRN #40 tablet 09/02/16 Unknown Rx ED Physical Exam - General Limitations: No Limitations - Other Other exam information: General: No limitations, patient is alert in no acute distress Head exam: Atraumatic, normocephalic Eyes exam: Normal appearance ENT: Moist mucous membrane, normal oropharynx Neck exam: Normal inspection, full range of motion Respiratory exam: Clear to auscultation bilateral, no wheezes, rales, crackles Cardiovascular: Normal rate and rhythm, normal heart sounds Abdomen: Soft, nondistended, and nontender, with normal bowel sounds, no rebound, or guarding : External exam only, No active bleeding, minimal blood on Tylenol Extremity: Full range of motion normal inspection no deformity Back: Normal Inspection, full range of motion, no tenderness Neurologic: Alert, oriented x3, cranial nerves intact, no motor or sensory deficit Psychiatric: normal affect, normal mood Skin: Warm, dry, intact ED Course Vital Signs 04/01/17 04:54 Temperature 97.9 F Pulse Rate 77 Respiratory 18 Rate Blood Pressure 137/71 O2 Sat by Pulse 100 Oximetry - Reevaluation(s) Reevaluation #1: 04/01/17 08:52 Patient denies pain at this time. 1 L normal saline in progress - Consultations Consultation #1: 04/01/17 08:44 case d/w Dr June Donaldson, Rec transfer to L and D with fetus so she may examine for placenta . ED Medical Decision Making - Lab Data Result diagrams: 04/01/17 05:05 04/01/17 05:05 Lab Results 04/01/17 04/01/17 04/01/17 Range/Units 05:05 05:05 05:05 WBC 8.1 (4.5-11.0) K/mm3 RBC 4.00 (3.65-5.03) M/mm3 Hgb 10.2 (10.1-14.3) gm/dl Hct 31.2 (30.3-42.9) % MCV 78 L (79-97) fl MCH 25 L (28-32) pg MCHC 33 (30-34) % RDW 20.6 H (13.2-15.2) % Plt Count 243 (140-440) K/mm3 Lymph % (Auto) 24.0 (13.4-35.0) % [place] % (Auto) 9.1 H (0.0-7.3) % Eos % (Auto) 0.6 (0.0-4.3) % Baso % (Auto) 0.3 (0.0-1.8) % Lymph # 1.9 (1.2-5.4) K/mm3 [place] # 0.7 (0.0-0.8) K/mm3 Eos # 0.1 (0.0-0.4) K/mm3 Baso # 0.0 (0.0-0.1) K/mm3 Seg Neutrophils % 66.0 (40.0-70.0) % Seg Neutrophils # 5.3 (1.8-7.7) K/mm3 Sodium 135 L (137-145) mmol/L Potassium 3.5 L (3.6-5.0) mmol/L Chloride 101.6 (98-107) mmol/L Carbon Dioxide 19 L (22-30) mmol/L Anion Gap 18 mmol/L BUN 7 (7-17) mg/dL Creatinine 0.6 L (0.7-1.2) mg/dL Estimated GFR > 60 ml/min BUN/Creatinine Ratio 11.66 % Glucose 110 H (65-100) mg/dL Calcium 8.8 (8.4-10.2) mg/dL Total Bilirubin 0.20 (0.1-1.2) mg/dL AST 10 (5-40) units/L ALT 6 L (7-56) units/L Alkaline Phosphatase 97 (35-129) units/L Total Protein 7.4 (6.3-8.2) g/dL Albumin 3.2 L (3.9-5) g/dL Albumin/Globulin Ratio 0.8 % Lipase 35 (13-60) units/L HCG, Qual Positive (Negative) HCG, Quant (0-4) mIU/mL Blood Type Antibody Screen JESSICA Antibody Screen 04/01/17 04/01/17 Range/Units 06:02 06:20 WBC (4.5-11.0) K/mm3 RBC (3.65-5.03) M/mm3 Hgb (10.1-14.3) gm/dl Hct (30.3-42.9) % MCV (79-97) fl MCH (28-32) pg MCHC (30-34) % RDW (13.2-15.2) % Plt Count (140-440) K/mm3 Lymph % (Auto) (13.4-35.0) % [place] % (Auto) (0.0-7.3) % Eos % (Auto) (0.0-4.3) % Baso % (Auto) (0.0-1.8) % Lymph # (1.2-5.4) K/mm3 [place] # (0.0-0.8) K/mm3 Eos # (0.0-0.4) K/mm3 Baso # (0.0-0.1) K/mm3 Seg Neutrophils % (40.0-70.0) % Seg Neutrophils # (1.8-7.7) K/mm3 Sodium (137-145) mmol/L Potassium (3.6-5.0) mmol/L Chloride (98-107) mmol/L Carbon Dioxide (22-30) mmol/L Anion Gap mmol/L BUN (7-17) mg/dL Creatinine (0.7-1.2) mg/dL Estimated GFR ml/min BUN/Creatinine Ratio % Glucose (65-100) mg/dL Calcium (8.4-10.2) mg/dL Total Bilirubin (0.1-1.2) mg/dL AST (5-40) units/L ALT (7-56) units/L Alkaline Phosphatase (35-129) units/L Total Protein (6.3-8.2) g/dL Albumin (3.9-5) g/dL Albumin/Globulin Ratio % Lipase (13-60) units/L HCG, Qual (Negative) HCG, Quant 75790 H (0-4) mIU/mL Blood Type B POSITIVE Antibody Screen TNR JESSICA Antibody Screen Negative - Radiology Data Radiology results: report reviewed ( ultrasound: Large unilocular cyst in the right adnexal 15 x 7 x 14cm. Large ovarian or paraovarian cyst. Fetus in the lower uterine segment and cervical canal with feet in the vagina) - Medical Decision Making Patient seen to have a complete miscarriage. Patient also has a large ovarian/ Ovarian cyst. Patient will be transferred to L&D for further management. Vital signs stable. No signs of anemia. Patient does not require RhoGAM based on blood type - Differential Diagnosis miscarriage, threatened , ectopic, anemia Critical Care Time: No Critical care attestation.: If time is entered above; I have spent that time in minutes in the direct care of this critically ill patient, excluding procedure time. ED Disposition Clinical Impression: Miscarriage, Ovarian cyst Disposition: -09 OP ADMIT IP TO THIS HOSP Is pt being admited?: Yes Condition: Stable Time of Disposition: 08:46 (transfer to L and D.)
[2017-04-01 09:21] LABS: Bacteria,Urine 1+ /HPF (Negative); Bilirubin,Urine NEG (Negative); Blood,Urine LG (Negative); Ketones,Urine NEG (Negative); Leukocyte Esterase,Urine MOD (Negative); Mucus,Urine 3+ /HPF; Nitrite,Urine NEG (Negative)
[2017-04-01 09:23] LABS: RBC,Urine > 182.0 /HPF (0.0-6.0)
--- NOTE | 2017-04-01 09:49 | Admit Criteria Form ---
Admission Criteria Documentation: OBSTETRIC AND GYNECOLOGIC DISEASE GRG Clinical Indications for Admission to Inpatient Care (Place 'X' for any and all applicable criteria): Hospital admission is needed for appropriate care of the patient because of 1 or more of the following (1)(2)(3): [ ]I. Hemodynamic instability, as indicated by 1 or more of the following (1)( 2)(3)(4)(5): [ ]a) Vital signs or other findings not as expected for chronic patient condition or baseline [ ]b) Instability indicated by 1 or more of the following: [ ]i) Hypotension [ ]ii) Symptomatic tachycardia unresponsive to treatment (eg, analgesia, fluids, sedation as indicated) [ ]iii) Inadequate perfusion indicated by 1 or more of the following: [ ]A. Lactic acidosis (greater than 2 mmol/ L) [ ]B. New abnormal capillary refill ( greater than 3 seconds) [ ]C. Reduced urine output [ ]D. New altered mental status [ ]iv) Orthostatic vital sign changes unresponsive to treatment (eg, fluids) [ ]v) Multiple IV fluid boluses required to maintain adequate blood pressure or perfusion [ ]vi) IV inotropic or vasopressor medication required to maintain adequate blood pressure or perfusion [ ]II. Obstetric infection requiring hospitalization indicated by 1 or more of the following(13)(14): [ ]a) Chorioamnionitis [ ]b) Endometritis (except mild endometritis) [ ]c) Pelvic abscess [ ]d) Peritonitis [ ]e) Septic pelvic thrombophlebitis [ ]III. Amniotic fluid or pulmonary embolism(4)(5)(6) [ ]IV. Suspected peritonitis or ectopic requiring monitoring beyond scope of 24 hours or observation care(7)(8) [ ]V. compromise requiring hospitalization indicated by ALL of the following(9)(10): [ ]a) compromise indicated by 1 or more of the following(11): [ ]i) Abnormal heart rate monitoring [ ]ii) Abnormal contraction stress test [ ]iii) Abnormal biophysical profile [ ]iv) Abnormal Doppler flow in vessels (ie, Doppler velocimetry) (12) [ ]b) Persistence of compromise indicators during evaluation and observation monitoring [ ]. Ovarian hyperstimulation syndrome requiring hospitalization[A] indicated by ALL of the following(15): [ ]a) Recent ovarian stimulation with gonadotropins, or evidence on ultrasound of spontaneous emergence of large number of ovarian follicles [ ]b) Evidence of severe ovarian hyperstimulation syndrome indicated by 1 or more of the following: [ ]i) Abdominal pain unresponsive to oral therapy [ ]ii) Acute respiratory distress syndrome [ ]iii) Electrolyte imbalance ( eg, hyponatremia, hyperkalemia) [ ]iv) Elevated liver enzymes [ ]v) Evidence of thromboembolism [ ]vi) Hemoconcentration (hematocrit greater than 45 % (0.45)) [ ]vii) Inability to maintain oral intake adequate to prevent hemoconcentration [ ]viii) Marked hypotension from baseline (eg, SBP 20 mmHg below patients usual pressure) [ ]ix) Oliguria or anuria [ ]x) Ovarian torsion [ ]xi) Pleural or pericardial effusion on x-ray or echocardiogram [ ]xii) Rapid increase in serum creatinine to greater than 1.2 mg/dL (106 micromoles/L) or creatinine clearance less than 50 mL/min/1.73m2 (0.84 mL/ sec/1.73m2) [ ]xiii) Ruptured ovarian cyst with hemorrhage [ ]xiv) Severe abdominal pain or peritoneal signs [ ]xv) Tense ascites that cannot be managed with paracentesis in outpatient setting [ ]VII.Pelvic infection requiring hospitalization indicated by 1 or more of the following (16): [ ]a) Outpatient treatment has failed or is not appropriate (eg, inpatient monitoring required) [ ]b) Pelvic abscess [ ]c) Surgical emergency cannot be excluded (eg, rigid abdomen) [ ]d) Vomiting precluding outpatient and observation care management VIII. loss complications requiring inpatient medical treatment indicated by 1 or more of the following (4)(7)(9): [ ]a) Fever [ ]b) Peritonitis [ ]c) Sepsis [ ]d) Severe abdominal pain [ ]IX. or patient requiring monitoring for severe heart failure, pulmonary disease, or other comorbid condition (eg, peripartum cardiomyopathy) (4)(17) [ ]X. patient with rupture of membranes requiring hospitalization indicated by ANY ONE of the following: [ ]a) Chorioamnionitis, cloudy amniotic fluid, or other evidence of infection [ ]b) compromise or other need for monitoring (11) [ ]c) Gestation longer than 23 weeks and ANY ONE of the following: [ ]i) Abnormal (noncephalic) presentation [ ]ii) Inadequate home environment (eg, home too far from hospital, unable to rapidly return to hospital) [ ]d) Temperature greater than 100.4 degrees F (38 degrees C)( oral) [ ]e) Threatened labor requiring monitoring beyond scope (eg, over 24 hours) of observation Care [ ] XI. complications, including severe lacerations, infections, or retained placenta (19) [ ] XII.Uterine bleeding with high-risk features indicated by ANY ONE of the following (4): [ ]a) Active major hemorrhage (eg, hemorrhage) [ ]b) Coagulopathy with active bleeding [ ]c) Gestational trophoblastic disease (eg, molar ) (20 ) [ ]d) (longer than 23 weeks) and ANY ONE of the following: [ ]i) Pain [ ]ii) Placental abruption, known or suspected [ ]iii) Placenta accrete, known or suspected(21) [ ]iv) Placenta previa, known or suspected [ ]v) Vasa previa [ ]e) Severe anemia [X]XIII. Obstetric or Gynecologic Disease, condition or symptom for which ANY ONE of the following: [ ]a) Emergency and observation care have failed or are not considered appropriate ( Also use General Criteria: Observation Care Criteria as appropriate) [ ]b) Presence of a General Admission Criteria or Pediatric General Admission Criteria The original [facility] [employer] content created by [employer] has been revised. The portions of the content which have been revised are identified through the use of italic text or in bold, and [facility] has neither reviewed nor approved the modified material.All other unmodified content is copyright [facility]. Please see references footnoted in the original [facility] edition 2016 Admission Criteria Met: Yes
[2017-04-01] MEDS ORDERED: BRETHINE SUB-Q PRN (09:59)
[2017-04-01] MEDS ORDERED: MINERAL OIL PO PRN (09:59)
[2017-04-01] MEDS ORDERED: SUBLIMAZE IV PRN (09:59)
[2017-04-01] MEDS ORDERED: LACTATED RINGERS 1,000 ML IV SCH (09:59)
[2017-04-01] MEDS ORDERED: ePHEDrine SULFATE IV PRN (09:59)
[2017-04-01] MEDS ORDERED: BRETHINE IVP PRN (09:59)
[2017-04-01 10:28] LABS: Hematocrit 27.8 % (30.3-42.9); Hemoglobin 9.2 gm/dl (10.1-14.3); Mean Corpuscular HGB Conc 33 % (30-34); Mean Corpuscular Volume 78 fl (79-97); Platelet Count 229 K/mm3 (140-440); Red Blood Count 3.57 M/mm3 (3.65-5.03); White Blood Count 9.6 K/mm3 (4.5-11.0)
[2017-04-01 10:30] LABS: Mean Corpuscular Hemoglobin 26 pg (28-32); Red Cell Distribution Width 20.9 % (13.2-15.2)
[2017-04-01 11:34] LABS: HIV-1 Antigen p24 Non React (Non React); HIVR-1/2 Ab Reactive (Non React)
[2017-04-01] MEDS ORDERED: CYTOTEC VG ONE (13:01)
[2017-04-01] MEDS ORDERED: IMODIUM PO PRN (13:02)
[2017-04-01] MEDS ORDERED: ZOFRAN IV PRN ×2 (13:02→19:42)
[2017-04-01] MEDS ORDERED: STADOL IV PRN (13:02)
[2017-04-01 13:06] LABS: Urine Drugs of Abuse Note Disclamer
--- NOTE | 2017-04-01 13:09 | History and Physical Report ---
History of Present Illness Date of examination: 04/01/17 Date of admission: 04/01/17 10:45 Chief complaint: abdominal pain, vaginal bleeding History of present illness: Pt is a 31 year old -Citizen Of [place] female who presents from the ED this morning. She recalls having abdominal pain last night that was mild, that became more intense on the morning of presentation causing her to present to the ED. While in the ED department, she had an ultrasound that showed a breech fetus in the lower uterine segment with the feet in the vaginal canal at 23w5d gestational age by today's ultrasound. Subsequently, the patient delivered a non -viable male in the ED. Sunsequently, the on-call GROUND HOST/HOSTESS was consulted for further management. The patient knew that she was , reports her LMP as unsure but probably "in the middle of November, like December 09" and has had no care or ultrasounds during this prior to the studies taken during this admission. Her medical history is significant for HIV infection and Migraines. 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, HIV Family/Genetic History: none Social history: no significant social history - Obstetrical History Expected Date of Delivery: 07/24/17 Actual Gestation: 23 Week(s) 5 Day(s) : 4 Para: 3 Hx # Term Pregnancies: 3 Number of Pregnancies: 0 Spontaneous Abortions: 0 Induced : 0 Number of Living Children: 3 Medications and Allergies Allergies Allergy/AdvReac Type Severity Reaction Status Date / Time No Known Allergies Allergy Verified 08/31/16 21:43 Home Medications Medication Instructions Recorded Confirmed Last Taken Type Elviteg/Deanna/Emtric/Tenofo Ala 1 each PO DAILY 04/01/17 04/01/17 03/31/17 History [Genvoya (Nf)] Active Meds: Active Medications Butorphanol Tartrate (Stadol) 2 mg IV Q2H PRN PRN Reason: Labor Pain Fentanyl (Sublimaze) 100 mcg IV Q2H PRN PRN Reason: Labor Pain Lactated Ringer's (Lactated Ringers) 1,000 mls @ 125 mls/hr IV DIRECT ANNIKA Oxytocin/Sodium Chloride (Pitocin/Ns 20 Unit/1000ml Drip) 20 units in 1,000 mls @ 125 mls/hr IV DIRECT ANNIKA Loperamide HCl (Imodium) 2 mg PO Q2H PRN PRN Reason: Diarrhea Mineral Oil (Mineral Oil) 30 ml PO QHS PRN PRN Reason: Constipation Ondansetron HCl (Zofran) 4 mg IV Q4H PRN PRN Reason: Nausea And Vomiting Review of Systems All systems: negative - Vital Signs Vital signs: Vital Signs Temp Pulse Resp BP Pulse Ox 97.9 F 77 18 137/71 100 04/01/17 04:54 04/01/17 04:54 04/01/17 04:54 04/01/17 04:54 04/01/17 04:54 Temp Pulse Resp BP Pulse Ox 97.9 F 70 16 122/60 99 04/01/17 04:54 04/01/17 13:01 04/01/17 08:10 04/01/17 12:02 04/01/17 13:01 - Physical Exam Breasts: Positive: deferred Cardiovascular: Regular rate Lungs: Positive: Clear to auscultation Abdomen: Positive: soft (obese, gravid; fundus at 24 wks ) Cervix: Positive: other (cevix 2 cm dilated) Uterus: Positive: enlarged (gravid ) Extremities: Positive: normal - Obstetrical Uterine Contraction Pattern: Irregular Uterine Tone Measurement Phase: Resting Uterine Contraction Intensity: Mild Results Result Diagrams: 04/01/17 10:03 04/01/17 05:05 All other labs normal. Assessment and Plan A: IUP at 23w5d labor/ Delivery- placenta not yet delivered Malpresentation HIV Infection Obesity Genital Herpes No Preanatal Care P: Admit to labor and delivery No care labs Misoprostol 800 mcg to facilitate delivery of the placenta Closely monitor clinical status
--- NOTE | 2017-04-01 15:09 | Event Note ---
Date: 04/01/17 On-call MD called secondary to heavy vaginal bleeding. Sterile vaginal exam performed, large clot removed. Total EBL 700 mL from this episodel. Cervix 4-5 cm dilated with placenta near os. Continue to monitor closely. Begin pospartum pitocin as well.
[2017-04-01] MEDS: PITOCin/NS 20 UNIT/1000ML DRIP 20 UNITS/1,000 ML BAG IV SCH ×2 (15:23→17:35)
--- NOTE | 2017-04-01 17:20 | Event Note ---
Date: 04/01/17 Pt delivered the placenta in the bed. It appears intact and will be sent to pathology.
[2017-04-01] MEDS ORDERED: TUCKS PAD TP PRN (19:42)
[2017-04-01] MEDS ORDERED: PERCOCET 5/325 PO PRN (19:42)
[2017-04-01] MEDS ORDERED: PHENERGAN PO PRN (19:42)
[2017-04-01] MEDS ORDERED: BENADRYL PO PRN (19:42)
[2017-04-01] MEDS ORDERED: PITOCin/NS 20 UNIT/1000ML DRIP 20 UNITS/1,000 ML BAG IV SCH (19:42)
[2017-04-01] MEDS ORDERED: TYLENOL PO PRN (19:42)
[2017-04-01] MEDS ORDERED: SODIUM CHLORIDE FLUSH SYRINGE 10 ML IV NR (19:42)
[2017-04-01] MEDS ORDERED: LANSINOH TP PRN (19:42)
[2017-04-01] MEDS ORDERED: MOTRIN PO SCH (19:42)
[2017-04-01] MEDS ORDERED: PHENERGAN PR PRN (19:42)
[2017-04-01] MEDS ORDERED: MILK OF MAGNESIA PO PRN (19:42)
[2017-04-01] MEDS ORDERED: DULCOLAX PR PRN (19:42)
--- NOTE | 2017-04-01 22:25 | Procedure Note ---
OB Delivery Note - Delivery Date of Delivery: 04/01/17 Surgeon: MONIQUE CRUZ (delivery unattended in ED) Estimated blood loss: 1000cc - Vaginal Delivery presentation: breech Intrapartum events: no care, labor-<37 weeks, PROM->1hr before delivery, other(please specify) (Retained Placenta ) Delivery induction: none Delivery monitor: none (in Emergency Department ) Route of delivery: Delivery placenta: spontaneous Episiotomy: none Delivery laceration: none Anesthesia: none Delivery comments: Pt delivered fetus in the bathroom of the ED, unattended. Cord in ED. Upon entry to the labor and delivery unit. Placenta in situ. Pt received 800 mcg of misoprostol and Pitocin (20 units in 1000 mL) to cause delivery of the placenta which was spontaneous. Total EBL 1000mL including passage of clots prior to delivery of the placenta. - A at 1 minute: 0 at 5 minutes: 0 Gender: Male (23w5d)
[2017-04-01] MEDS: FEOSOL PO SCH (22:41)
[2017-04-01] MEDS: COLACE PO SCH (22:41)
[2017-04-01] MEDS: MOTRIN PO SCH (22:42)
[2017-04-02 04:50] LABS: Hemoglobin 7.4 gm/dl (10.1-14.3)
[2017-04-02] MEDS ORDERED: BOOSTRIX IM ONE (06:00)
[2017-04-02] MEDS ORDERED: M-M-R II VACCINE SUB-Q ONE (06:00)
[2017-04-02] MEDS: MOTRIN PO SCH ×2 (06:42→20:10)
[2017-04-02] MEDS: PRENATAL VITAMIN PO SCH (11:56)
[2017-04-02] MEDS: COLACE PO SCH ×2 (11:57→21:46)
[2017-04-02] MEDS: FEOSOL PO SCH ×2 (11:57→21:46)
[2017-04-02] MEDS ORDERED: NACL 0.9% 500 ML 500 ML IV ONE (13:45)
--- NOTE | 2017-04-02 13:45 | Progress Note ---
Assessment and Plan A/P PPD#1 delivery of viable PP hemorrhage ovarina cyst pain controlled symptomatic from anemia ( severe acute) will trnasfuse 2 U prBC continue post care Subjective - Subjective Date of service: 04/02/17 Principal diagnosis: s/p delivery of nonviable fetus , PP hemorrhage , HIV Patient reports: appetite normal, voiding normally, dizzy ambulation, pain well controlled, flatus Solomon: Objective - Vital Signs Latest vital signs: Vital Signs Temp Pulse Resp BP Pulse Ox 04/02/17 08:05 97.8 F 82 16 96/48 04/02/17 04:00 98.6 F 75 16 115/75 04/02/17 00:30 98.6 F 71 16 120/75 04/01/17 19:30 98.6 F 72 16 109/58 04/01/17 18:50 98.2 F 78 18 114/50 04/01/17 18:30 93 H 100 04/01/17 18:27 80 20 105/55 100 04/01/17 18:25 83 100 04/01/17 18:20 86 100 04/01/17 18:15 89 100 04/01/17 18:12 78 119/59 04/01/17 18:10 74 99 04/01/17 18:05 75 100 04/01/17 18:00 73 99 04/01/17 17:59 73 20 124/64 99 04/01/17 17:56 85 85 04/01/17 17:55 72 100 04/01/17 17:50 73 100 04/01/17 17:45 75 98 04/01/17 17:42 75 127/61 04/01/17 17:40 73 99 04/01/17 17:35 65 99 04/01/17 17:30 69 100 04/01/17 17:27 68 20 132/56 100 04/01/17 17:25 69 99 04/01/17 17:20 85 99 04/01/17 17:15 67 100 04/01/17 17:12 98.1 F 67 20 138/63 100 04/01/17 17:10 72 99 04/01/17 17:05 80 100 04/01/17 17:00 75 99 04/01/17 16:55 81 99 04/01/17 16:50 73 99 04/01/17 16:47 75 133/117 04/01/17 16:45 72 99 04/01/17 16:40 76 100 04/01/17 16:35 73 100 04/01/17 16:30 76 98 04/01/17 16:25 74 98 04/01/17 16:20 70 99 04/01/17 16:16 68 115/60 04/01/17 16:15 73 98 04/01/17 16:10 72 99 04/01/17 16:05 72 99 04/01/17 16:00 94 H 100 04/01/17 15:57 79 93 04/01/17 15:55 77 98 04/01/17 15:50 70 128/68 99 04/01/17 15:45 70 99 04/01/17 15:40 75 100 04/01/17 15:35 65 99 04/01/17 15:30 80 97 04/01/17 15:26 71 94 04/01/17 15:25 89 98 04/01/17 15:20 92 H 97 04/01/17 15:16 81 120/60 04/01/17 15:15 73 99 04/01/17 15:13 20 04/01/17 15:10 73 99 04/01/17 15:05 78 98 04/01/17 15:00 74 112/57 99 Intake and Output 04/01/17 04/02/17 04/02/17 22:59 06:59 14:59 Intake Total 500 300 Balance 500 300 Intake: Oral 200 Intake, Free Water 300 300 Other: Total, Intake Amount 200 Estimated Blood Loss 700 - Exam Breasts: Present: normal Cardiovascular: Present: Regular rate, Normal S1 Lungs: Present: Clear to auscultation, Normal air movement Abdomen: Present: normal appearance, soft. Absent: distention, tenderness, guarding Uterus: Present: normal, firm. Absent: bogginess, tenderness Extremities: Present: normal Deep Tendon Reflex Grade: Normal +2 - Labs Labs: Abnormal lab results 04/02/17 Range/Units 04:34 Hgb 7.4 L (10.1-14.3) gm/dl Hct 23.0 L (30.3-42.9) %
--- NOTE | 2017-04-02 15:56 | Discharge Summary ---
Providers - Providers Date of Admission: 04/01/17 10:45 Date of discharge: 04/02/17 Attending physician: MONIQUE CRUZ Primary care physician: LAURIE ZARATE MD Hospitalization Reason for admission: IUP - , vaginal bleeding, labor Delivery: Episiotomy: none Laceration: none complications: transfusion Discharge diagnosis: intrapartum demise baby: male Hospital course: Patient came in through the ER and delivered a non viable baby at 23+ weeks in ED and was transferred to mother and baby where placenta delivered and noted to have PP hemorrhage of 1000cc. Patient was transfused 2 U pp RBC. noted ovarian cyst asymptomatic. Investigate and evaluate PP. Discussed control. Condition at discharge: Good Disposition: DC-01 TO HOME OR SELFCARE Plan - Provider Discharge Summary Activity: routine, no sex for 6 weeks Diet: routine Instructions: routine Additional instructions: [] Smoking cessation referral if applicable(refer to patient education folder for contact #) [] Refer to [facility]'s [facility] Booklet Call your doctor immediately for: * Fever > 100.5 * Heavy vaginal bleeding ( >1 pad per hour) * Severe persistent headache * Shortness of breath * Reddened, hot, painful area to leg or breast * Drainage or odor from incision. * Keep incision clean and dry at all times and follow doctor's instructions regarding bathing/showering - Follow up plan Follow up: LAURIE ZARATE MD [Primary Care Provider] - 04/29/17
[2017-04-02] MEDS ORDERED: NACL 0.9% 500 ML 500 ML IV SCH (17:00)
[2017-04-03 01:40] LABS: Hematocrit 27.1 % (30.3-42.9)
[2017-04-03] MEDS: MOTRIN PO SCH (13:16)
[2017-04-03] MEDS: COLACE PO SCH (13:16)
[2017-04-03] MEDS: PRENATAL VITAMIN PO SCH (13:16)
[2017-04-03] MEDS: FEOSOL PO SCH (13:16)
[2017-04-03 14:42] VITALS: BP 110/60
== END 2017-04-03 14:35 | disposition home or self-care (01) | DRG 774 ==
LOC: ED 04:35 → LD 10:45 → OB 18:56
PROVIDERS: ADMIT Obstetrics & Gynecology; ATTEND Obstetrics & Gynecology
PROC: 10E0XZZ Delivery of Products of Conception, External Approach (ICD-10-PCS; principal; 2017-04-01)
PROC: 30233N1 Transfusion of Nonautologous Red Blood Cells into Peripheral Vein, Percutaneous Approach (ICD-10-PCS; 2017-04-01)
DX: O36.4XX0 Maternal care for intrauterine death, not applicable or unspecified (principal); O98.32 Other infections with a predominantly sexual mode of transmission complicating childbirth; O60.12X0 Preterm labor second trimester with preterm delivery second trimester, not applicable or unspecified; O99.214 Obesity complicating childbirth; E66.9 Obesity, unspecified; A60.00 Herpesviral infection of urogenital system, unspecified; O32.1XX0 Maternal care for breech presentation, not applicable or unspecified; Z3A.23 23 weeks gestation of pregnancy; Z37.1 Single stillbirth; O72.1 Other immediate postpartum hemorrhage
CPT/HCPCS: 36415; 76805; 80053; 80307; 81001; 83690; 84702; 84703; 85014; 85018; 85025; 85027; 86689; 86706; 86762; 86803; 86850; 86900; 86901; 86920; 87806; 88305; 99285; J2590; J3010; J7030; J7040; J7120; P9016

== ENCOUNTER 2017-04-06 01:35 | Inpatient (IN) | payer MEDICAID ==
[2017-04-06] MEDS ORDERED: TYLENOL ONE (02:00)
[2017-04-06] MEDS ORDERED: TYLENOL PO ONE (02:00)
[2017-04-06] MEDS ORDERED: ZOFRAN IV ONE (11:08)
[2017-04-06] MEDS ORDERED: MORPHINE IV ONE ×2 (11:08→20:46)
[2017-04-06] MEDS ORDERED: NACL 0.9% 1000 ML 1,000 ML IV ONE (11:08)
--- NOTE | 2017-04-06 11:14 | Emergency Department Report ---
ED Abdominal Pain HPI - General Chief Complaint: Abdominal Pain Stated Complaint: ABD PAIN X 5 DAYS Time Seen by Provider: 04/06/17 11:02 Source: patient Mode of arrival: Ambulatory Limitations: No Limitations - History of Present Illness Initial Comments: Patient is 31 year old female presented to the ER with abdominal pain that started 2 days ago patient was recently discharged from the hospital after she was found to have a breech presentation at the age of 23 weeks she had an nonviable fetus. Patient denied any abnormal vaginal discharge. No fever no nausea no vomiting. MD Complaint: abdominal pain -: Gradual Location: suprapubic Migration to: no migration Severity scale (0 -10): 10 Quality: cramping Associated Symptoms: nausea. denies: vomiting, diarrhea - Related Data LMP (females 10-50): other Home Medications Medication Instructions Recorded Confirmed Last Taken Elviteg/Deanna/Emtric/Tenofo Ala 1 each PO DAILY 04/01/17 04/06/17 03/31/17 [Genvoya (Nf)] Allergies Allergy/AdvReac Type Severity Reaction Status Date / Time No Known Allergies Allergy Verified 08/31/16 21:43 ED Review of Systems ROS: Stated complaint: ABD PAIN X 5 DAYS Other details as noted in HPI Constitutional: denies: chills, fever Respiratory: denies: cough, shortness of breath Cardiovascular: denies: chest pain Gastrointestinal: abdominal pain, nausea. denies: vomiting, diarrhea, constipation, hematemesis Genitourinary: discharge. denies: urgency, dysuria, frequency Neurological: denies: headache ED Past Medical Hx - Past Medical History Previous Medical History?: Yes Hx Hypertension: No Hx Congestive Heart Failure: No Hx Diabetes: Yes (gestational diabetes with 1st baby) Hx Deep Vein Thrombosis: No Hx Renal Disease: No Hx Sickle Cell Disease: No Hx Seizures: No Hx Asthma: No Hx COPD: No Hx HIV: Yes (Aug 2016) - Surgical History Past Surgical History?: No - Social History Smoking Status: Never Smoker Substance Use Type: None - Medications Home Medications: Home Medications Medication Instructions Recorded Confirmed Last Taken Type Elviteg/Deanna/Emtric/Tenofo Ala 1 each PO DAILY 04/01/17 04/06/17 03/31/17 History [Genvoya (Nf)] ED Physical Exam - General Limitations: No Limitations General appearance: alert, in distress (due to pain) - Eye Eye exam: Present: normal appearance - ENT ENT exam: Present: normal exam - Neck Neck exam: Present: normal inspection - Respiratory Respiratory exam: Present: normal lung sounds bilaterally. Absent: respiratory distress, wheezes, rhonchi, chest wall tenderness, accessory muscle use - Cardiovascular Cardiovascular Exam: Present: regular rate, tachycardia, normal heart sounds - GI/Abdominal GI/Abdominal exam: Present: soft, tenderness. Absent: guarding, rebound, rigid , normal bowel sounds, diminished bowel sounds, organomegaly, mass - Back Exam Back exam: Present: normal inspection - Neurological Exam Neurological exam: Present: alert, oriented X3, CN II-XII intact - Skin Skin exam: Present: warm, normal color ED Course Vital Signs 04/06/17 04/06/17 04/06/17 01:48 02:10 10:18 Temperature 97.9 F 98 F Pulse Rate 95 H 95 H Respiratory 18 18 16 Rate Blood Pressure 125/75 Blood Pressure 108/54 [Right] O2 Sat by Pulse 99 100 Oximetry 04/06/17 04/06/17 13:00 15:51 Temperature 98.8 F 98.6 F Pulse Rate 97 H 86 Respiratory 18 16 Rate Blood Pressure Blood Pressure 116/59 94/51 [Right] O2 Sat by Pulse 100 100 Oximetry - Reevaluation(s) Reevaluation #1: 04/06/17 17:09 Patient stated that she is feeling better. Discussed with Dr. Kera Wilson for admission. ED Medical Decision Making - Lab Data Result diagrams: 04/06/17 11:15 04/06/17 11:15 Critical care attestation.: If time is entered above; I have spent that time in minutes in the direct care of this critically ill patient, excluding procedure time. ED Disposition Clinical Impression: Abdominal pain complicating , Endometritis following abortive Disposition: OP ADMIT IP TO THIS HOSP Is pt being admited?: Yes Condition: Stable Instructions: Abdominal Pain (ED) Referrals: KERA WILSON MD [Primary Care Provider] - 3-5 Days
[2017-04-06 11:41] LABS: Basophils % (Auto) 0.1 % (0.0-1.8); Eosinophils % (Auto) 0.2 % (0.0-4.3); Hematocrit 32.2 % (30.3-42.9); Hemoglobin 10.1 gm/dl (10.1-14.3); Mean Corpuscular HGB Conc 31 % (30-34); Mean Corpuscular Hemoglobin 26 pg (28-32); Mean Corpuscular Volume 84 fl (79-97); Platelet Count 297 K/mm3 (140-440); Red Blood Count 3.85 M/mm3 (3.65-5.03); White Blood Count 18.1 K/mm3 (4.5-11.0)
[2017-04-06 11:51] LABS: Alanine Aminotransferase 6 units/L (7-56); Albumin 3.1 g/dL (3.9-5); Albumin/Globulin Ratio 0.9 %; Alkaline Phosphatase 93 units/L (35-129); Blood Urea Nitrogen 7 mg/dL (7-17); Calcium 8.3 mg/dL (8.4-10.2); Carbon Dioxide 19 mmol/L (22-30); Glucose 99 mg/dL (65-100); Total Protein 6.4 g/dL (6.3-8.2)
[2017-04-06 11:52] LABS: Anion Gap 20 mmol/L; Bilirubin,Direct < 0.2 mg/dL (0-0.2); Bilirubin,Indirect 0.2 mg/dL; Chloride 104.5 mmol/L (98-107); Potassium 4.5 mmol/L (3.6-5.0); Sodium 139 mmol/L (137-145)
[2017-04-06] MEDS: ZOSYN/NS 3.375GM/50ML 3.375 GM/50 ML BAG IV SCH ×3 (13:25→23:56)
--- NOTE | 2017-04-06 13:42 | Admit Criteria Form ---
Admission Criteria Documentation: OBSTETRIC AND GYNECOLOGIC DISEASE GRG Clinical Indications for Admission to Inpatient Care (Place 'X' for any and all applicable criteria): Hospital admission is needed for appropriate care of the patient because of 1 or more of the following (1)(2)(3): [ ]I. Hemodynamic instability, as indicated by 1 or more of the following (1)( 2)(3)(4)(5): [ ]a) Vital signs or other findings not as expected for chronic patient condition or baseline [ ]b) Instability indicated by 1 or more of the following: [ ]i) Hypotension [ ]ii) Symptomatic tachycardia unresponsive to treatment (eg, analgesia, fluids, sedation as indicated) [ ]iii) Inadequate perfusion indicated by 1 or more of the following: [ ]A. Lactic acidosis (greater than 2 mmol/ L) [ ]B. New abnormal capillary refill ( greater than 3 seconds) [ ]C. Reduced urine output [ ]D. New altered mental status [ ]iv) Orthostatic vital sign changes unresponsive to treatment (eg, fluids) [ ]v) Multiple IV fluid boluses required to maintain adequate blood pressure or perfusion [ ]vi) IV inotropic or vasopressor medication required to maintain adequate blood pressure or perfusion [ ]II. Obstetric infection requiring hospitalization indicated by 1 or more of the following(13)(14): [ ]a) Chorioamnionitis [ ]b) Endometritis (except mild endometritis) [ ]c) Pelvic abscess [ ]d) Peritonitis [ ]e) Septic pelvic thrombophlebitis [ ]III. Amniotic fluid or pulmonary embolism(4)(5)(6) [ ]IV. Suspected peritonitis or ectopic requiring monitoring beyond scope of 24 hours or observation care(7)(8) [ ]V. compromise requiring hospitalization indicated by ALL of the following(9)(10): [ ]a) compromise indicated by 1 or more of the following(11): [ ]i) Abnormal heart rate monitoring [ ]ii) Abnormal contraction stress test [ ]iii) Abnormal biophysical profile [ ]iv) Abnormal Doppler flow in vessels (ie, Doppler velocimetry) (12) [ ]b) Persistence of compromise indicators during evaluation and observation monitoring [ ]. Ovarian hyperstimulation syndrome requiring hospitalization[A] indicated by ALL of the following(15): [ ]a) Recent ovarian stimulation with gonadotropins, or evidence on ultrasound of spontaneous emergence of large number of ovarian follicles [ ]b) Evidence of severe ovarian hyperstimulation syndrome indicated by 1 or more of the following: [ ]i) Abdominal pain unresponsive to oral therapy [ ]ii) Acute respiratory distress syndrome [ ]iii) Electrolyte imbalance ( eg, hyponatremia, hyperkalemia) [ ]iv) Elevated liver enzymes [ ]v) Evidence of thromboembolism [ ]vi) Hemoconcentration (hematocrit greater than 45 % (0.45)) [ ]vii) Inability to maintain oral intake adequate to prevent hemoconcentration [ ]viii) Marked hypotension from baseline (eg, SBP 20 mmHg below patients usual pressure) [ ]ix) Oliguria or anuria [ ]x) Ovarian torsion [ ]xi) Pleural or pericardial effusion on x-ray or echocardiogram [ ]xii) Rapid increase in serum creatinine to greater than 1.2 mg/dL (106 micromoles/L) or creatinine clearance less than 50 mL/min/1.73m2 (0.84 mL/ sec/1.73m2) [ ]xiii) Ruptured ovarian cyst with hemorrhage [ ]xiv) Severe abdominal pain or peritoneal signs [ ]xv) Tense ascites that cannot be managed with paracentesis in outpatient setting [ ]VII.Pelvic infection requiring hospitalization indicated by 1 or more of the following (16): [ ]a) Outpatient treatment has failed or is not appropriate (eg, inpatient monitoring required) [ ]b) Pelvic abscess [ ]c) Surgical emergency cannot be excluded (eg, rigid abdomen) [ ]d) Vomiting precluding outpatient and observation care management VIII. loss complications requiring inpatient medical treatment indicated by 1 or more of the following (4)(7)(9): [ ]a) Fever [ ]b) Peritonitis [ ]c) Sepsis [ ]d) Severe abdominal pain [ ]IX. or patient requiring monitoring for severe heart failure, pulmonary disease, or other comorbid condition (eg, peripartum cardiomyopathy) (4)(17) [ ]X. patient with rupture of membranes requiring hospitalization indicated by ANY ONE of the following: [ ]a) Chorioamnionitis, cloudy amniotic fluid, or other evidence of infection [ ]b) compromise or other need for monitoring (11) [ ]c) Gestation longer than 23 weeks and ANY ONE of the following: [ ]i) Abnormal (noncephalic) presentation [ ]ii) Inadequate home environment (eg, home too far from hospital, unable to rapidly return to hospital) [ ]d) Temperature greater than 100.4 degrees F (38 degrees C)( oral) [ ]e) Threatened labor requiring monitoring beyond scope (eg, over 24 hours) of observation Care [X] XI. complications, including severe lacerations, infections, or retained placenta (19) [ ] XII.Uterine bleeding with high-risk features indicated by ANY ONE of the following (4): [ ]a) Active major hemorrhage (eg, hemorrhage) [ ]b) Coagulopathy with active bleeding [ ]c) Gestational trophoblastic disease (eg, molar ) (20 ) [ ]d) (longer than 23 weeks) and ANY ONE of the following: [ ]i) Pain [ ]ii) Placental abruption, known or suspected [ ]iii) Placenta accrete, known or suspected(21) [ ]iv) Placenta previa, known or suspected [ ]v) Vasa previa [ ]e) Severe anemia [ ]XIII. Obstetric or Gynecologic Disease, condition or symptom for which ANY ONE of the following: [ ]a) Emergency and observation care have failed or are not considered appropriate ( Also use General Criteria: Observation Care Criteria as appropriate) [ ]b) Presence of a General Admission Criteria or Pediatric General Admission Criteria The original [facility] content created by [facility] [employer] has been revised. The portions of the content which have been revised are identified through the use of italic text or in bold, and [facility] has neither reviewed nor approved the modified material.All other unmodified content is copyright [facility]. Please see references footnoted in the original [facility] edition 2016 Admission Criteria Met: Yes
[2017-04-06 14:07] LABS: Bacteria,Urine 1+ /HPF (Negative); Bilirubin,Urine NEG (Negative); Blood,Urine MOD (Negative); Ketones,Urine NEG (Negative); Leukocyte Esterase,Urine TR (Negative); Mucus,Urine 2+ /HPF; Nitrite,Urine NEG (Negative)
--- NOTE | 2017-04-06 15:44 | Ultrasound Report ---
Transabdominal and transvaginal pelvic ultrasound. History: Vaginal bleeding in a patient who is status post miscarriage on April 02. Findings: The endometrial echo is thickened and heterogeneous measuring 2.9 cm in maximum diameter. The uterus is enlarged consistent with recent . No additional focal uterine abnormalities are seen. The ovaries are normal in size and configuration. There is a moderate volume of fluid in the cul-de-sac. Impression: Thickened heterogeneous endometrium suspicious for retained POC's. Moderate free fluid is also present.
[2017-04-06] MEDS ORDERED: ZOSYN/NS 3.375GM/50ML 3.375 GM/50 ML BAG IV ONE (18:53)
[2017-04-06] MEDS ORDERED: ASTRAMORPH PF IV ONE (20:46)
[2017-04-06] MEDS ORDERED: ZOFRAN IV PRN (20:46)
[2017-04-06] MEDS: METHERGINE PO SCH (21:56)
[2017-04-06] MEDS: D5LR 1,000 ML IV SCH (21:57)
[2017-04-07] MEDS: METHERGINE PO SCH ×3 (05:47→22:36)
[2017-04-07] MEDS: ZOSYN/NS 3.375GM/50ML 3.375 GM/50 ML BAG IV SCH ×2 (06:24→18:00)
[2017-04-07] MEDS: MORPHINE IV PRN ×3 (10:04→19:45)
[2017-04-07 10:54] LABS: Basophils % (Auto) 0.2 % (0.0-1.8); Eosinophils % (Auto) 1.1 % (0.0-4.3); Hematocrit 27.4 % (30.3-42.9); Hemoglobin 9.1 gm/dl (10.1-14.3); Mean Corpuscular HGB Conc 33 % (30-34); Mean Corpuscular Hemoglobin 27 pg (28-32); Mean Corpuscular Volume 82 fl (79-97); Platelet Count 300 K/mm3 (140-440); Red Blood Count 3.35 M/mm3 (3.65-5.03); White Blood Count 8.4 K/mm3 (4.5-11.0)
[2017-04-07 11:06] LABS: Red Cell Distribution Width 20.7 % (13.2-15.2)
--- NOTE | 2017-04-07 12:48 | History and Physical Report ---
<MONIQUE CRUZ - Last Filed: 04/07/17 12:48> History of Present Illness Date of admission: 04/06/17 17:11 Past History - Obstetrical History : 4 Medications and Allergies Allergies Allergy/AdvReac Type Severity Reaction Status Date / Time No Known Allergies Allergy Verified 08/31/16 21:43 Home Medications Medication Instructions Recorded Confirmed Last Taken Type Elviteg/Deanna/Emtric/Tenofo Ala 1 each PO DAILY 04/01/17 04/06/17 03/31/17 History [Genvoya (Nf)] Active Meds: Active Medications Piperacillin Sod/Tazobactam Sod (Zosyn/Ns 3.375gm/50ml) 3.375 gm in 50 mls @ 100 mls/hr IV Q6HR ANNIKA Last Admin: 04/07/17 06:24 Dose: 100 mls/hr Dextrose/Lactated Ringer's (D5lr) 1,000 mls @ 75 mls/hr IV DIRECT ANNIKA Last Admin: 04/06/17 21:57 Dose: 75 mls/hr Methylergonovine Maleate (Methergine) 0.2 mg PO Q8HR ANNIKA Last Admin: 04/07/17 05:47 Dose: 0.2 mg Morphine Sulfate (Morphine) 2 mg IV Q3H PRN PRN Reason: Pain, Moderate (4-6) Last Admin: 04/07/17 10:04 Dose: 2 mg Ondansetron HCl (Zofran) 4 mg IV Q4H PRN PRN Reason: Nausea And Vomiting - Vital Signs Vital signs: Vital Signs Temp Pulse Resp BP Pulse Ox 97.9 F 95 H 18 125/75 99 04/06/17 01:48 04/06/17 01:48 04/06/17 01:48 04/06/17 01:48 04/06/17 01:48 Temp Pulse Resp BP Pulse Ox 98.8 F 80 20 125/64 100 04/07/17 03:57 04/07/17 03:57 04/07/17 10:04 04/07/17 03:57 04/06/17 19:11 Results Result Diagrams: 04/07/17 10:01 04/06/17 11:15 Abnormal lab results 04/07/17 Range/Units 10:01 RBC 3.35 L (3.65-5.03) M/mm3 Hgb 9.1 L (10.1-14.3) gm/dl Hct 27.4 L (30.3-42.9) % MCH 27 L (28-32) pg RDW 20.7 H (13.2-15.2) % [place] % (Auto) 7.6 H (0.0-7.3) % Seg Neutrophils % 74.3 H (40.0-70.0) % All other labs normal. <CHELO ANGLIN M - Last Filed: 04/07/17 13:33> History of Present Illness Date of examination: 04/07/17 Date of admission: 04/06/17 17:11 Chief complaint: abdominal pain PPD 5 vaginal delivery and PP hemorrhage History of present illness: This is 31 yo AAF came in ER c/o abdominal pain after having a and PP hemorrhage 5 days ago. After release she stated that she had abdominal pain and fevers and came back to ER. I was contacted by Er attending stated that she had elevated wbc 18, and abdominal pain ( not acute). US performed that showed enlarged uterus and thickened endometrium 2.9cm. She also reported nausea and vomiting beginning one day ago. Past History Past Medical History: other (HIV ) ERP MANAGER History: HIV Family/Genetic History: none Social history: single. denies: smoking, alcohol abuse, prescription drug abuse Medications and Allergies Active Meds: Active Medications Piperacillin Sod/Tazobactam Sod (Zosyn/Ns 3.375gm/50ml) 3.375 gm in 50 mls @ 100 mls/hr IV Q6HR ANNIKA Last Admin: 04/07/17 06:24 Dose: 100 mls/hr Dextrose/Lactated Ringer's (D5lr) 1,000 mls @ 75 mls/hr IV DIRECT ANNIKA Last Admin: 04/06/17 21:57 Dose: 75 mls/hr Methylergonovine Maleate (Methergine) 0.2 mg PO Q8HR ANNIKA Last Admin: 04/07/17 05:47 Dose: 0.2 mg Morphine Sulfate (Morphine) 2 mg IV Q3H PRN PRN Reason: Pain, Moderate (4-6) Last Admin: 04/07/17 10:04 Dose: 2 mg Ondansetron HCl (Zofran) 4 mg IV Q4H PRN PRN Reason: Nausea And Vomiting Review of Systems Gastrointestinal: abdominal pain, nausea, vomiting Genitourinary: vaginal bleeding - Vital Signs Vital signs: Vital Signs Temp Pulse Resp BP Pulse Ox 97.9 F 95 H 18 125/75 99 04/06/17 01:48 04/06/17 01:48 04/06/17 01:48 04/06/17 01:48 04/06/17 01:48 Temp Pulse Resp BP Pulse Ox 98.9 F 90 18 113/64 100 04/07/17 12:00 04/07/17 12:00 04/07/17 12:00 04/07/17 12:00 04/06/17 19:11 - Physical Exam Breasts: Positive: normal Cardiovascular: Regular rate, Normal S1 Lungs: Positive: Clear to auscultation, Normal air movement Abdomen: Positive: normal appearance, soft. Negative: distention, tenderness, guarding Genitourinary (Female): Positive: normal external genitalia, normal perenium Vulva: both: normal Vagina: Positive: normal moisture Uterus: Positive: enlarged, normal contour, tender. Negative: normal size Anus/Rectum: Positive: normal perianal skin Extremities: Positive: normal Deep Tendon Reflex Grade: Normal +2 Results Result Diagrams: 04/07/17 10:01 04/06/17 11:15 Abnormal lab results 04/07/17 Range/Units 10:01 RBC 3.35 L (3.65-5.03) M/mm3 Hgb 9.1 L (10.1-14.3) gm/dl Hct 27.4 L (30.3-42.9) % MCH 27 L (28-32) pg RDW 20.7 H (13.2-15.2) % [place] % (Auto) 7.6 H (0.0-7.3) % Seg Neutrophils % 74.3 H (40.0-70.0) % All other labs normal. Ultrasound: report reviewed Assessment and Plan A/P PPD#5 s/p vag delivery, PP hemorrhage abdominal pain - working dx endometritis started on Zosyn nausea - zofran US reading ( will review with radiology) question POC Pain has decreased - on morphine 2mg q3hrs close monitor of vitals CBC, type and screen continue abx HIV- consult with Intfectious disease ( Dr. Darwin Rodriguez)
--- NOTE | 2017-04-07 12:48 | Progress Note ---
Assessment and Plan A: PPD# 6 s/p at 23 wks of non viable male complicated by retained placenta, hemorrhage and blood transfusion HD#1 readmitted for endometritis on IV Unasyn clinically improved HIV Infection Obesity P: Continue IV antibiotics. ID consult Case management for resources after demise Subjective - Subjective Date of service: 04/07/17 Principal diagnosis: Endometritis, HIV Infection Interval history: pt reports improved abdominal pain. She reports that she did not have prescriptions when she was discharged initially so she had no pain medication while out of the hospital. Patient reports: voiding normally, pain well controlled, ambulating normally, no nauseated Objective - Vital Signs Latest vital signs: Vital Signs Temp Pulse Resp BP BP Pulse Ox 04/07/17 10:04 20 04/07/17 03:57 98.8 F 80 20 125/64 04/06/17 23:15 98.5 F 89 20 114/67 04/06/17 19:58 98.5 F 79 20 127/59 04/06/17 19:11 118/59 100 04/06/17 19:00 118/59 100 04/06/17 18:51 109/51 100 04/06/17 18:41 109/51 100 04/06/17 18:30 109/51 100 04/06/17 18:21 112/46 100 04/06/17 18:11 112/46 100 04/06/17 18:07 98.6 F 89 16 112/46 96 04/06/17 18:00 110/50 100 04/06/17 17:51 112/46 97 04/06/17 17:41 112/46 98 04/06/17 17:30 112/46 97 04/06/17 17:21 105/49 98 Intake and Output 04/06/17 04/07/17 04/07/17 22:59 06:59 14:59 Intake Total 50 1030 225 Output Total 300 Balance 50 730 225 Intake: IV 50 50 225 D5lr 1,000 ml @ 75 mls/hr 225 IV DIRECT ANNIKA Rx#: [id number] ZOSYN/NS 3.375GM/50ML 3. 50 50 375 gm In 50 ml @ 100 mls /hr IV Q6HR ANNIKA Rx#: [id number] Oral 980 Output: Urine 300 Void 300 Other: Total, Intake Amount 620 Total, Output Amount 300 Voiding Method Toilet Toilet Toilet # Voids Void 3 # Bowel Movements 0 - Exam Breasts: Present: deferred Cardiovascular: Present: Regular rate Lungs: Present: Clear to auscultation Abdomen: Present: soft (obese). Absent: tenderness Uterus: Present: fundal height at umbilicus Extremities: Present: normal - Labs Labs: Abnormal lab results 04/07/17 Range/Units 10:01 RBC 3.35 L (3.65-5.03) M/mm3 Hgb 9.1 L (10.1-14.3) gm/dl Hct 27.4 L (30.3-42.9) % MCH 27 L (28-32) pg RDW 20.7 H (13.2-15.2) % [place] % (Auto) 7.6 H (0.0-7.3) % Seg Neutrophils % 74.3 H (40.0-70.0) %
[2017-04-07] MEDS: D5LR 1,000 ML IV SCH (14:12)
[2017-04-08] MEDS: METHERGINE PO SCH ×3 (05:37→22:11)
[2017-04-08] MEDS: ZOSYN/NS 3.375GM/50ML 3.375 GM/50 ML BAG IV SCH ×4 (05:38→23:58)
--- NOTE | 2017-04-08 07:50 | Progress Note ---
Assessment and Plan A: PPD# 7 s/p at 23 wks of non viable male complicated by retained placenta, hemorrhage and blood transfusion HD#1 readmitted for endometritis on IV Unasyn clinically improved HIV Infection Obesity P: Continue IV antibiotics. ID consult Case management for resources after demise Subjective - Subjective Date of service: 04/08/17 Principal diagnosis: Endometritis, HIV Infection Interval history: Pt reports pain on her left side that is poorly controlled. Bleeding much improved. She wishes to stay until tomorrow "so she doesn't keep coming back." Patient reports: appetite normal, voiding normally, pain well controlled, ambulating normally Objective - Vital Signs Latest vital signs: Vital Signs Temp Pulse Resp BP 04/08/17 04:30 98.0 F 67 20 120/75 04/08/17 00:20 98.2 F 70 20 119/70 04/07/17 20:10 98.3 F 75 20 109/57 04/07/17 19:45 18 04/07/17 17:00 98.1 F 95 H 18 101/76 04/07/17 14:24 16 04/07/17 12:00 98.9 F 90 18 113/64 04/07/17 10:04 20 Intake and Output 04/07/17 04/08/17 04/08/17 22:59 06:59 14:59 Intake Total 50 120 Output Total 500 Balance -450 120 Intake: IV 50 ZOSYN/NS 3.375GM/50ML 3. 50 375 gm In 50 ml @ 100 mls /hr IV Q6HR ANNIKA Rx#: [id number] Oral 120 Output: Urine 500 Void 500 Other: Total, Intake Amount 120 Total, Output Amount 500 Voiding Method Toilet Toilet # Voids Void 1 - Exam Breasts: Present: deferred Cardiovascular: Present: Regular rate Lungs: Present: Clear to auscultation Abdomen: Present: soft (obese ) Uterus: Present: fundal height at umbilicus Extremities: Present: edema (trace ) - Labs Labs: Abnormal lab results 04/07/17 Range/Units 10:01 RBC 3.35 L (3.65-5.03) M/mm3 Hgb 9.1 L (10.1-14.3) gm/dl Hct 27.4 L (30.3-42.9) % MCH 27 L (28-32) pg RDW 20.7 H (13.2-15.2) % [place] % (Auto) 7.6 H (0.0-7.3) % Seg Neutrophils % 74.3 H (40.0-70.0) %
[2017-04-08] MEDS: PERCOCET 5/325 PO PRN ×2 (08:36→20:28)
--- NOTE | 2017-04-08 09:20 | Consultation ---
History of Present Illness - Reason for Consult Consult date: 04/08/17 HIV Infection; Endometritis Requesting physician: CHELO ANGLIN - History of Present Illness Ms. Duque is a 31-year-old woman with HIV infection. I was unable to obtain further details regarding her infection and treatment, because the patient had sleeping visitors x 2 in the room and she did not want to ask them to leave. Nonetheless, she is on Genvoya. She is admitted after a spontaneous x ~ 24 weeks' gestation. Ultrasound imaging showed findings suspicious for retained products of conception. She is on empiric Zosyn, presently day #2. ID consultation is requested for HIV management and for treatment recommendations for endometritis. Past History Past Medical History: HIV/AIDS Social history: single. denies: smoking, alcohol abuse, prescription drug abuse Family history: no significant family history Medications and Allergies Allergies Allergy/AdvReac Type Severity Reaction Status Date / Time No Known Allergies Allergy Verified 08/31/16 21:43 Home Medications Medication Instructions Recorded Confirmed Last Taken Type Elviteg/Deanna/Emtric/Tenofo Ala 1 each PO DAILY 04/01/17 04/06/17 03/31/17 History [Genvoya (Nf)] Active Meds: Active Medications Piperacillin Sod/Tazobactam Sod (Zosyn/Ns 3.375gm/50ml) 3.375 gm in 50 mls @ 100 mls/hr IV Q6HR ANNIKA Last Admin: 04/08/17 05:38 Dose: 100 mls/hr Dextrose/Lactated Ringer's (D5lr) 1,000 mls @ 75 mls/hr IV DIRECT ANNIKA Last Admin: 04/07/17 14:12 Dose: 75 mls/hr Ibuprofen (Motrin) 800 mg PO Q8H PRN PRN Reason: Pain, Mild (1-3) Methylergonovine Maleate (Methergine) 0.2 mg PO Q8HR ANNIKA Last Admin: 04/08/17 05:37 Dose: 0.2 mg Morphine Sulfate (Morphine) 2 mg IV Q3H PRN PRN Reason: Pain, Moderate (4-6) Last Admin: 04/07/17 19:45 Dose: 2 mg Ondansetron HCl (Zofran) 4 mg IV Q4H PRN PRN Reason: Nausea And Vomiting Oxycodone/Acetaminophen (Percocet 5/325) 2 tab PO Q4H PRN PRN Reason: Pain, Moderate (4-6) Last Admin: 04/08/17 08:36 Dose: 2 tab Review of Systems All systems: negative Constitutional: fever, no chills, no sweats, no weakness Cardiovascular: no chest pain, no palpitations Respiratory: no cough, no cough with sputum, no shortness of breath Gastrointestinal: abdominal pain, no nausea, no vomiting, no diarrhea Genitourinary Female: no hematuria, no vaginal odor Menstruation: other (post-miscarriage) Integumentary: no rash, no pruritis Neurological: no headaches Physical Examination - Constitutional Vitals: Vital Signs Temp Pulse Resp BP Pulse Ox 98.0 F 67 20 120/75 100 04/08/17 04:30 04/08/17 04:30 04/08/17 04:30 04/08/17 04:30 04/06/17 19:11 Temperature -Last 24 Hours Temperature 98.0 F Temperature 98.2 F Temperature 98.3 F Temperature 98.1 F Temperature 98.9 F General appearance: Present: well-nourished, obese, other (visitors sleeping at bedside) - Neck Neck: Present: supple - Respiratory Respiratory effort: normal Respiratory: bilateral: CTA, negative: rales - Cardiovascular Rhythm: regular Heart Sounds: Present: S1 & S2 - Extremities Extremity abnormal: edema (trace pedal edema) - Abdominal General gastrointestinal: Present: soft, tender, distended, normal bowel sounds , other (midly distended lower abdomen, mildly tender, no increased warmth) Localized gastrointestinal: tender: suprapubic, midline Female genitourinary: Present: other (vaginal bleeding noted) - Integumentary Integumentary: Present: clear. Absent: rash - Psychiatric Psychiatric: appropriate mood/affect - Neurologic Neurologic: other ((+) strabismus) Results - Labs CBC & Chem 7: 04/07/17 10:01 04/06/17 11:15 Labs: Abnormal lab results 04/07/17 Range/Units 10:01 RBC 3.35 L (3.65-5.03) M/mm3 Hgb 9.1 L (10.1-14.3) gm/dl Hct 27.4 L (30.3-42.9) % MCH 27 L (28-32) pg RDW 20.7 H (13.2-15.2) % [place] % (Auto) 7.6 H (0.0-7.3) % Seg Neutrophils % 74.3 H (40.0-70.0) % Microbiology 04/06/17 12:47 Peripheral/Venous Blood Culture - Preliminary NO GROWTH AFTER 24 HOURS 04/06/17 12:18 Peripheral/Venous Blood Culture - Preliminary NO GROWTH AFTER 24 HOURS Assessment and Plan - Patient Problems (1) Endometritis following abortive Current Visit: Yes Status: Acute Plan to address problem: 1. Continue Zosyn while inpatient. 2. Doxycycline 100mg PO q12h/ Flagyl 500mg PO q12h combination is an oral alternative when patient is ready for discharge. Can complete a7-day course ( through 2016). (2) HIV (human immunodeficiency virus infection) Current Visit: Yes Status: Acute Plan to address problem: 1. Patient can follow-up with me in my office at [address] [place] [address], [address] , [place], [place]. 2. Although I was unable to discuss a follow-up and treatment plan with the patient during my visit with her today, I did ask her nurse to advise her to call [phone] to schedule an appointment to see me during the month of March. 3. If the patient stays until tomorrow, I will discuss her treatment further at that time. 4. Continue Genvoya. Medication is not on formulary, therefore patient may use her own supply or resume after discharge if short stay.
[2017-04-08] MEDS: D5LR 1,000 ML IV SCH (12:14)
[2017-04-08] MEDS ORDERED: GENVOYA PO SCH (12:15)
[2017-04-08] MEDS: MOTRIN PO PRN (20:29)
[2017-04-09] MEDS: MOTRIN PO PRN (05:22)
[2017-04-09] MEDS: PERCOCET 5/325 PO PRN (05:22)
[2017-04-09] MEDS: METHERGINE PO SCH ×2 (05:22→13:30)
[2017-04-09] MEDS: ZOSYN/NS 3.375GM/50ML 3.375 GM/50 ML BAG IV SCH ×2 (05:23→11:14)
--- NOTE | 2017-04-09 10:06 | Progress Note ---
Assessment and Plan A: PPD# 8 s/p at 23 wks of non viable male complicated by retained placenta, hemorrhage and blood transfusion HD#2 readmitted for endometritis on IV Unasyn clinically improved HIV Infection Obesity P: Transition to PO antibiotics and discharge home today. She will follow up in office in 2 weeks for follow up. Subjective - Subjective Date of service: 04/09/17 Principal diagnosis: Endometritis, HIV Infection Interval history: Pt's pain is much better today. She reports that she is ready to go home. Her lochia is decreasing. Patient reports: appetite normal, voiding normally, pain well controlled, ambulating normally Objective - Vital Signs Latest vital signs: Vital Signs Temp Pulse Resp BP 04/09/17 08:25 98.4 F 68 20 107/61 04/09/17 04:05 97.6 F 73 20 113/54 04/09/17 00:00 98.4 F 69 20 114/63 04/08/17 20:00 97.9 F 70 20 118/58 04/08/17 16:30 97.9 F 57 L 18 104/55 04/08/17 13:21 97.6 F 64 18 104/60 Intake and Output 04/08/17 04/09/17 04/09/17 22:59 06:59 14:59 Intake Total 50 410 120 Balance 50 410 120 Intake: IV 50 50 ZOSYN/NS 3.375GM/50ML 3. 50 50 375 gm In 50 ml @ 100 mls /hr IV Q6HR [facility] Rx#: [id number] Oral 360 120 Other: Total, Intake Amount 120 120 Voiding Method Toilet Toilet # Voids Void 1 1 1 - Exam Breasts: Present: deferred Cardiovascular: Present: Regular rate Lungs: Present: Clear to auscultation Abdomen: Present: soft (obese ) Uterus: Present: fundal height below umbilicus Extremities: Present: normal
--- NOTE | 2017-04-09 10:11 | Progress Note ---
Assessment and Plan - Patient Problems (1) Endometritis following abortive Current Visit: Yes Status: Acute Plan to address problem: 1. Patient is clinically improved. Oral Doxycycline/ Flagyl to complete a 5-7 -day course (~ thru 04/13/17). 2. Patient has completed Zosyn day #3. (2) HIV (human immunodeficiency virus infection) Current Visit: Yes Status: Acute Plan to address problem: 1. I have provided contact information for my office as well as a prescription for Genvoya for 1 month. 2. Patient does not know her most CD4 count to determine need of OI prophylaxis, but has agreed to schedule a visit with me within the next 1-2 weeks. Subjective Date of service: 04/09/17 Principal diagnosis: Endometritis, HIV Infection Interval history: Patient remains afebrile. Mild left lower abdominal pain, also scant vaginal bleeding. Objective - Constitutional Vitals: Vital Signs Temp Pulse Resp BP Pulse Ox 98.4 F 68 20 107/61 100 04/09/17 08:25 04/09/17 08:25 04/09/17 08:25 04/09/17 08:25 04/06/17 19:11 Temperature -Last 24 Hours Temperature 98.4 F Temperature 97.6 F Temperature 98.4 F Temperature 97.9 F Temperature 97.9 F Temperature 97.6 F General appearance: Present: no acute distress, other (non-toxic appearance) - Respiratory Respiratory effort: normal Respiratory: bilateral: CTA - Cardiovascular Rhythm: regular Heart Sounds: Present: S1 & S2 Extremity abnormal: edema (mild-moderate edema of left hand s/p IV, now removed) - Gastrointestinal General gastrointestinal: Present: soft, non-distended Localized gastrointestinal: tender: LLQ - Integumentary Integumentary: clear, no rash - Psychiatric Psychiatric: appropriate mood/affect - Labs CBC & Chem 7: 04/07/17 10:01 04/06/17 11:15
--- NOTE | 2017-04-09 10:14 | Discharge Summary ---
Providers - Providers Date of Admission: 04/06/17 17:11 Date of discharge: 04/09/17 Attending physician: CHELO ANGLIN MD 04/07/17 12:56 Consult to Case Management [CONS] Routine Services Needed at Discharge: Other Notified:: yes Phone number called:: [phone] Was contact made?: Yes If yes, spoke with:: Leticia Time called:: 15:22 Additional Physician Instructions: Pt had vaginal delivery of non viable male on 04/01/17. Please give additional resources. 04/07/17 13:13 Consult to Physician [CONS] Routine Consulting Provider: ERICA ADORNO Reason For Exam: endometritis and HIV Place consult to:: infectious disease Notified:: YES Phone number called:: [phone] Was contact made?: Yes If yes, spoke with:: EUGENIO Time called:: 09:14 Comment:: LEFT MESSAGE Primary care physician: CHELO ANGLIN MD Hospitalization Reason for admission: other (Endometritis ) Hospital course: Patient was admitted for treatment of endometritis. She received IV antibiotics during her hospitalization. She also had an infectious disease consult to guide her antibiotic regimen outpatient. She will follow up in the office in 2 weeks for follow-up. Condition at discharge: Stable Disposition: - TO HOME OR SELFCARE - Discharge Diagnoses (1) endometritis Status: Acute (2) Obesity Status: Acute Qualifiers: Obesity type: O Obesity classification: adult class 2 (BMI 35 ? 39.9) Serious obesity comorbidity presence: S Body mass index: B (3) HIV (human immunodeficiency virus infection) Status: Acute Plan - Discharge Medications Prescriptions: Doxycycline [Vibramycin CAP] 100 mg PO Q12HR #14 capsule Ibuprofen [Motrin 800 MG tab] 800 mg PO Q8H PRN #30 tablet PRN Reason: Pain, Mild (1-3) metroNIDAZOLE [Flagyl TAB] 500 mg PO Q12HR #14 tab oxyCODONE /ACETAMINOPHEN [Percocet 5/325 mg] 1 tab PO Q6H PRN #30 tablet PRN Reason: Pain, Moderate (4-6) - Provider Discharge Summary Activity: routine, no sex for 6 weeks, no heavy lifting 4 weeks, no strenuous exercise Diet: routine Instructions: routine Additional instructions: [] Smoking cessation referral if applicable(refer to patient education folder for contact #) [] Refer to [facility] Booklet Call your doctor immediately for: * Fever > 100.5 * Heavy vaginal bleeding ( >1 pad per hour) * Severe persistent headache * Shortness of breath * Reddened, hot, painful area to leg or breast * Drainage or odor from incision. * Keep incision clean and dry at all times and follow doctor's instructions regarding bathing/showering - Follow up plan Follow up: CHELO ANGLIN MD [Primary Care Provider] - 14 Days (please call to schedule appt in two weeks.)
[2017-04-09 18:31] VITALS: BP 129/54
== END 2017-04-09 17:15 | disposition home or self-care (01) | DRG 776 ==
LOC: ED 01:35 → OB 17:11
PROVIDERS: ADMIT Obstetrics & Gynecology; ATTEND Obstetrics & Gynecology
DX: O86.12 Endometritis following delivery (principal); O99.215 Obesity complicating the puerperium; O98 Maternal infectious and parasitic diseases classifiable elsewhere but complicating pregnancy, childbirth and the puerperium; B20 Human immunodeficiency virus [HIV] disease; E66.9 Obesity, unspecified; Z79.899 Other long term (current) drug therapy; Z68.38 Body mass index [BMI] 38.0-38.9, adult
CPT/HCPCS: 36415; 76830; 76856; 80048; 80074; 81001; 84702; 85025; 86850; 86900; 86901; 87040; 96361; 96374; J2270; J2405; J2543; J7030; J7121